=== PATIENT | male | born 1935 | race Caucasian/White ===

== ENCOUNTER 2021-08-08 20:44 | Inpatient (IN) | payer MEDICARE, BC ==
[~2021-08-08] VITALS: Ht 167.6 cm; Wt 89.8 kg
[2021-08-08] MEDS ORDERED: IV NS 0.9% 500 ML BAG IV ONE (21:00)
--- NOTE | 2021-08-08 21:10 | NUR ---
BLOOD WORK COLLECTED SENT TO LAB
--- NOTE | 2021-08-08 21:10 | NUR ---
RAD AT BEDSIDE
[2021-08-08 21:26] LABS: CARBON DIOXIDE 20 mmol/L (21-32); CHLORIDE 105 mmol/L (98-107); CREATININE 1.6 mg/dL (0.6-1.3); GLUCOSE 127 mg/dL (74-106); POTASSIUM 4.3 mmol/L (3.5-5.1); SODIUM SERUM 139 mmol/L (136-145); UREA NITROGEN, BLOOD 45 mg/dL (7-18)
[2021-08-08 21:31] LABS: BASOPHILS % (AUTO) 0.1 % (0.0-2.0); EOSINOPHILS % (AUTO) 2.7 % (0.0-6.0); HEMATOCRIT 36 % (39-51); HEMOGLOBIN 11.5 g/dL (13.5-17.5); LYMPHOCYTES # (AUTO) 1.1 K/uL (0.8-4.8); LYMPHOCYTES % (AUTO) 5.6 % (20.0-44.0); MEAN CORPUSCULAR HGB CONC 32 g/dl (31.0-36.0); MEAN CORPUSCULAR VOLUME 86 fL (80-96); MONOCYTES # (AUTO) 1.9 K/uL (0.1-1.30); NEUTROPHILS # (AUTO) 15.8 K/uL (1.8-8.9); NEUTROPHILS % (AUTO) 81.6 % (43.0-81.0); PLATELET COUNT (AUTO) 222 K/uL (150-450); RED BLOOD CELL COUNT(AUTO) 4.15 MIL/uL (4.5-6.0); WHITE BLOOD COUNT (AUTO) 19.4 K/uL (4.3-11.0)
[2021-08-08 21:42] LABS: ALANINE AMINOTRANSFERASE 95 U/L (12-78); ALBUMIN 2.6 g/dL (3.4-5.0); ALKALINE PHOSPHATASE 212 U/L (46-116); ASPARTATE AMINOTRANSFERASE 62 U/L (15-37); BILIRUBIN,DIRECT 0.4 mg/dL (0.0-0.2); BILIRUBIN,TOTAL 0.8 mg/dL (0.2-1.0); TOTAL PROTEIN, SERUM 7.7 g/dL (6.4-8.2)
--- NOTE | 2021-08-08 21:45 | NUR ---
COVID SWAB DONE
[2021-08-08] MEDS ORDERED: ASPIRIN 81 MG TAB.CHEW PO ONE (22:00)
--- NOTE | 2021-08-08 22:50 | NUR ---
[phone]
[2021-08-08] MEDS ORDERED: ENOXAPARIN SODIUM 80 MG/0.8 ML DISP.SYRIN SQ ONE ×2 (23:30→23:36)
[2021-08-09] MEDS ORDERED: Z GUARD REMEDY 4 OZ OINT TP PRN (01:00)
[2021-08-09] MEDS ORDERED: ACETAMINOPHEN 325 MG TABLET PO PRN (01:00)
[2021-08-09] MEDS ORDERED: IV 1/2NS 1000 ML 1,000 ML IV PRN (01:00)
[2021-08-09] MEDS ORDERED: MAGNESIUM HYDROXIDE 30 ML UDC PO PRN (01:00)
[2021-08-09] MEDS ORDERED: ONDANSETRON HCL/PF 4 MG/2 ML VIAL IVP PRN (01:00)
[2021-08-09 01:09] LABS: BILIRUBIN,URINE NEGATIVE (NEGATIVE); COLOR,URINE YELLOW (YELLOW); LEUKOCYTE ESTERASE ,URINE NEGATIVE (NEGATIVE); NITRITE, URINE NEGATIVE (NEGATIVE); PH,URINE 5.5 (5.0-8.0); PROTEIN,URINE TRACE mg/dl (NEGATIVE); UGLUCOSE NEGATIVE (NEGATIVE)
[2021-08-09] MEDS ORDERED: CEFTRIAXONE 1GM BAG (ER ONLY) 50 ML IV ONE (04:51)
[2021-08-09] MEDS: CEFTRIAXONE 1 G in IV D5W 50 ML IV SCH (04:52)
[2021-08-09 06:23] LABS: CHOLESTEROL 81 mg/dL (<200); HDL CHOLESTEROL 17 mg/dL (40-60); LDL 40 mg/dL (0-99); TRIGLYCERIDES 95 mg/dL (30-150)
[2021-08-09 06:31] LABS: BASOPHILS % (AUTO) 0.2 % (0.0-2.0); EOSINOPHILS % (AUTO) 3.6 % (0.0-6.0); HEMATOCRIT 32 % (39-51); HEMOGLOBIN 10.3 g/dL (13.5-17.5); LYMPHOCYTES % (AUTO) 6.4 % (20.0-44.0); MEAN CORPUSCULAR HGB CONC 33 g/dl (31.0-36.0); MEAN CORPUSCULAR VOLUME 86 fL (80-96); MONOCYTES # (AUTO) 1.5 K/uL (0.1-1.30); MONOCYTES % (AUTO) 9.5 % (2.0-12.0); NEUTROPHILS # (AUTO) 12.7 K/uL (1.8-8.9); NEUTROPHILS % (AUTO) 80.3 % (43.0-81.0); PLATELET COUNT (AUTO) 184 K/uL (150-450); RED BLOOD CELL COUNT(AUTO) 3.69 MIL/uL (4.5-6.0); WHITE BLOOD COUNT (AUTO) 15.9 K/uL (4.3-11.0)
--- NOTE | 2021-08-09 06:32 | NUR ---
CRITICAL LAB TROP [id number]
[2021-08-09 06:39] LABS: ALANINE AMINOTRANSFERASE 79 U/L (12-78); ALBUMIN 2.1 g/dL (3.4-5.0); ALKALINE PHOSPHATASE 187 U/L (46-116); ASPARTATE AMINOTRANSFERASE 54 U/L (15-37); BILIRUBIN,TOTAL 0.8 mg/dL (0.2-1.0); CALCIUM, SERUM 8.2 mg/dL (8.5-10.1); CARBON DIOXIDE 21 mmol/L (21-32); CHLORIDE 107 mmol/L (98-107); CREATININE 1.4 mg/dL (0.6-1.3); GLUCOSE 114 mg/dL (74-106); POTASSIUM 4.1 mmol/L (3.5-5.1); SODIUM SERUM 140 mmol/L (136-145); TOTAL PROTEIN, SERUM 6.6 g/dL (6.4-8.2); UREA NITROGEN, BLOOD 39 mg/dL (7-18)
--- NOTE | 2021-08-09 07:35 | NUR ---
BED 311-2
--- NOTE | 2021-08-09 07:47 | NUR ---
REPORT GIVEN TO YUE SHAIKH FOR YAMILEX
[2021-08-09] MEDS ORDERED: TAMS-12 PO (08:06)
[2021-08-09] MEDS ORDERED: ESCI5TAB PO (08:06)
[2021-08-09] MEDS ORDERED: BUDE3CAP8 PO (08:06)
[2021-08-09] MEDS ORDERED: FINA5TAB11 PO (08:06)
[2021-08-09] MEDS ORDERED: INFUSION (08:07)
[2021-08-09 08:10] VITALS: BP 133/67
[2021-08-09] MEDS: PANTOPRAZOLE 40 MG TABLET.DR PO SCH (08:47)
[2021-08-09] MEDS: ENOXAPARIN SODIUM 80 MG/0.8 ML DISP.SYRIN SQ SCH ×2 (08:48→21:08)
[2021-08-09] MEDS: ASPIRIN 81 MG TAB.CHEW PO SCH (08:48)
--- NOTE | 2021-08-09 09:30 | NUR ---
FURNACE MECHANIC HELPERMANAGER HVAC NOTES: ADMITTED 86Y/O MALE TO UNIT @0800 VIA REGULAR GURNEY ACCOMPANIED BY HEVER THEODORE FROM ER W/ DX OF NSTEMI. PATIENT ABLE TO MOVE FROM GURNEY TO BED WITH MINIMAL ASSISTANCE. A/O X4 AND ABLE TO VERBALIZED NEEDS. ORIENTED TO STAFFS AND AND UNIT. NO SOB OR CARDIAC DISTRESS NOTED, ON ROOM AIR AND TOLERATING WELL. BREATHING NORMAL AND UNLABORED AT THIS TIME. PATIENT WITH IV ACCESS ON LAC G#18 PATENT AND INTACT, IVF OF 1/2 NS @ 75ML/HR INFUSING WELL, NO S/S OF INFILTRATIONS AT SITE NOTED. ABDOMEN SOFT, NON-TENDER AND NOT DISTENDED, BOWEL SOUND PRESENT ON 4 QUADRANTS, LUNGS CLEAR UPON AUSCULTATION. SKIN IS WARM AND DRY, PHOTOS OF SKIN ISSUES TAKEN AND FILED ON HIS CHART. PT PLACED ON EXTERNAL EDITOR INDEX WITH CURRENT READING NSR, HR ON THE 70'S, NO C/O CARDIAC DISTRESS VOICED AT THIS TUME. SAFETY PRECAUTIONARY MEASURES IMPLEMENTED.: BED PLACED IN LOWEST POSITION AND LOCKED, SIDE RAILS UPX 2.TRAY TABLE AND CALL LIGHT IN EASY REACH FOR ASSISTANCE AND NEEDS. WILL CONTINUE TO MONITOR PATIENT ACCORDINGLY.
[2021-08-09 12:00] VITALS: BP 101/52
[2021-08-09 16:00] VITALS: BP 101/59
[2021-08-09] MEDS: TAMSULOSIN 0.4 MG CAP.SR.24H PO SCH (17:34)
[2021-08-09] MEDS: IV NS 0.9% 1,000 ML IV PRN (17:34)
[2021-08-09] MEDS: CARVEDILOL 3.125 MG TABLET PO SCH ×2 (17:35→21:03)
--- NOTE | 2021-08-09 18:07 | NUR ---
RN NOTES: CRITICAL LAB RESULTS: TROPONIN I HIGH SENS 1022 PATIENT FOR CARDIAC CATH TOMORROW @0900, NPO POST MIDNIGHT, WILL BE ENFORCED.
--- NOTE | 2021-08-09 18:29 | NUR ---
RN NOTES RECEIVED CALL FROM DR NICHOLSON WITH ORDER TO OBTAIN CONSENT FOR CARDIAC CATH TOMORROW AND NPO EXCEPT MEDS AFTER MIDNIGHT.
--- NOTE | 2021-08-09 19:02 | NUR ---
CALL OUT OPERATOR CLOSING NOTES: PATIENT IN BED WITH FAMILY IN BED SIDE, AWAKE AND ABLE TO VERBALIZED NEEDS. A/O X4. NO SOB OR CARDIAC DISTRESS NOTED, ON ROOM AIR AND TOLERTAING WELL. WITH IV OF 1/2 NS @75CC/HR AND INFUSING WELL ON LAC G#18. ON TELE MONITOR ATTACHED WITH CURRENT READING SR WITH BBB 63 @BPM. SAFETY MEASURES MAINTAINED: BED LOCKED AND IN LOWEST POSITION, SIDE RAILS UP X2. CALL LIGHT AND TRAY TABLE WITHIN EASY REACH. KEPT RESTED AND COMFORTABLE. CONSENT FOR CARDIAC CATH OBTAINED. PATIENT WILL BE ON NPO EXCEPT MEDS POST MIDNIGHT. WILL ENDORSED TO COOK ROOM SUPERVISOR NURSE FOR CONTINUITY OF CARE.
--- NOTE | 2021-08-09 19:10 | NUR ---
TELE/RN OPENING NOTE RECEIVED PATIENT RESTING IN BED. FAMILY AT BEDSIDE. PATIENT IS ALERT AND ORIENTED X 3. ABLE TO MAKE NEEDS KNOWN. DENIES PAIN AT THIS TIME. CONTINUES ON ROOM AIR WITH NO S/SX OF RESPIRATORY DISTRESS NOTED. IV ACCESS TO LEFT AC #18G INTACT AND PATENT. CONTINUES ON IVF NS @ 125ML/HR. CONTINUES ON IV ABX. PATIENT TO BE NPO FOR CARDIAC CATH IN AM. PATIENT AWARE AND AGREEABLE. CONSENTS ALL SIGNED IN CHART. CONTINUES ON TELE MONITOR WITH CURRENT READING SR. CALL LIGHT WITHIN REACH. ASPIRATION, FALL AND SAFETY PRECAUTIONS MAINTAINED. ALL NEEDS ATTENDED TO AT THIS TIME.
--- NOTE | 2021-08-09 19:20 | NUR ---
TELE/RN OPENING NOTE RECEIVED PATIENT RESTING IN BED. OBTUNDED AT BASELINE. NO S/SX OF PAIN NOTED. CONTINUES ON MECHANICAL VENT WITH PATIENT TOLERATING SETTINGS WELL. IV ACCESS TO LEFT UPPER ARM MIDLINE #18G INTACT AND PATENT. CONTINUES ON IVF NS @ 100ML/HR. CONTINUES ON TF GLUCERNA 1.2 @ 55ML/HR X 20HRS. NO RESIDUAL NOTED AT THIS TIME. CONTINUES ON LEMON CATHETER DRAINING CLEAR, YELLOW URINE TO GRAVITY. TELE MONITOR IN PLACE WITH CURRENT READING SR. CALL PLACED TO FAMILY REGARDING CONSENT FOR LEFT AKA. NO RETURN CALL YET. ASPIRATION, FALL AND SAFETY PRECAUTIONS MAINTAINED. ALL NEEDS ATTENDED TO AT THIS TIME. Addendum: 08/09/21 at 2224 by DARRION KIDD RN WRONG PATIENT.
[2021-08-09 20:00] VITALS: BP 135/61
--- NOTE | 2021-08-09 20:20 | NUR ---
TELE/RN NOTE LAB CALLED TO REPORT TROPONIN 832. DOWNTRENDING FROM PREVIOUS LAB DRAWS. MD AWARE. PATIENT TO HAVE CARDIAC CATH IN AM. CONSENTS SIGNED IN CHART.
[2021-08-09] MEDS: ZOLPIDEM TARTRATE 5 MG TABLET PO PRN (21:03)
[2021-08-09] MEDS: FINASTERIDE (5 MG) 5 MG TABLET PO SCH (21:03)
[2021-08-10] VITALS (15 sets, daily range): BP systolic 108–148; BP diastolic 43–103
--- NOTE | 2021-08-10 00:05 | NUR ---
TELE/RN NOTE LAB CALLED TO REPORT TROPONIN 885. DOWNTRENDING FROM PREVIOUS LAB DRAWS. MD AWARE. PATIENT TO HAVE CARDIAC CATH IN AM. CONSENTS SIGNED IN CHART.
[2021-08-10] MEDS: CEFTRIAXONE 1 G in IV D5W 50 ML IV SCH (04:50)
--- NOTE | 2021-08-10 06:10 | NUR ---
TELE/RN CLOSING NOTE PATIENT CURRENTLY SLEEPING IN BED. ALERT AND ORIENTED X 2-3. ABLE TO MAKE NEEDS KNOWN. DENIES PAIN AT THIS TIME. CONTINUES ON ROOM AIR WITH NO S/SX OF RESPIRATORY DISTRESS NOTED. IV ACCESS TO LEFT AC #18G INTACT AND PATENT. CONTINUES ON IVF NS @ 125ML/HR. CONTINUES ON IV ABX. PATIENT HAS BEEN NPO SINCE MIDNIGHT FOR CARDIAC CATH THIS AM. CONSENTS ALL SIGNED IN CHART. CONTINUES ON TELE MONITOR WITH CURRENT READING SR. CALL LIGHT WITHIN REACH. ASPIRATION, FALL AND SAFETY PRECAUTIONS MAINTAINED. WILL ENDORSE PLAN OF CARE TO ONCOMING SHIFT.
[2021-08-10 06:19] LABS: ALANINE AMINOTRANSFERASE 91 U/L (12-78); ALBUMIN 1.8 g/dL (3.4-5.0); ALKALINE PHOSPHATASE 231 U/L (46-116); ASPARTATE AMINOTRANSFERASE 60 U/L (15-37); BILIRUBIN,TOTAL 0.6 mg/dL (0.2-1.0); CALCIUM, SERUM 8.3 mg/dL (8.5-10.1); CARBON DIOXIDE 20 mmol/L (21-32); CHLORIDE 107 mmol/L (98-107); CREATININE 1.4 mg/dL (0.6-1.3); GLUCOSE 104 mg/dL (74-106); MAGNESIUM 1.8 mg/dL (1.8-2.4); POTASSIUM 4.2 mmol/L (3.5-5.1); SODIUM SERUM 138 mmol/L (136-145); TOTAL PROTEIN, SERUM 6.5 g/dL (6.4-8.2); UREA NITROGEN, BLOOD 31 mg/dL (7-18)
--- NOTE | 2021-08-10 06:30 | NUR ---
TELE/RN NOTE RECEIVED CALL FROM LAB WITH CRITICAL LAB VALUE TROPONIN 803. TRENDING DOWN FROM PREVIOUS TROPONIN LAB VALUES. PATIENT SCHEDULED FOR CARDIAC CATH THIS AM.
[2021-08-10 06:38] LABS: BASOPHILS # (AUTO) 0.1 K/uL (0.0-0.2); BASOPHILS % (AUTO) 0.4 % (0.0-2.0); HEMATOCRIT 33 % (39-51); HEMOGLOBIN 10.8 g/dL (13.5-17.5); LYMPHOCYTES # (AUTO) 1.2 K/uL (0.8-4.8); LYMPHOCYTES % (AUTO) 7.2 % (20.0-44.0); MEAN CORPUSCULAR HGB CONC 32 g/dl (31.0-36.0); MEAN CORPUSCULAR VOLUME 86 fL (80-96); MONOCYTES # (AUTO) 1.3 K/uL (0.1-1.30); MONOCYTES % (AUTO) 7.8 % (2.0-12.0); NEUTROPHILS # (AUTO) 13.3 K/uL (1.8-8.9); NEUTROPHILS % (AUTO) 79.6 % (43.0-81.0); PLATELET COUNT (AUTO) 173 K/uL (150-450); RED BLOOD CELL COUNT(AUTO) 3.86 MIL/uL (4.5-6.0); WHITE BLOOD COUNT (AUTO) 16.8 K/uL (4.3-11.0)
--- NOTE | 2021-08-10 07:20 | NUR ---
MANAGER LEGAL OPENING NOTES: RECEIEVED PARTIENT IN BED SLEEPING, EASY TO AROUSE WITH STIMULI. ALERT AND ORIENTED X 3, ABLE TO VERBALIZED NEEDS. NO SOB,BREATHING NORMAL AND UNLABORED, NO COMPLAIN OF ANY PAIN AT THIS TIME. IV ACCESS TO LEFT AC #18G INTACT AND PATENT. CONTINUES ON IVF NS @ 125ML/HR. PATIENT HAS BEEN NPO EXCEPT MEDS FOR CARDIAC CATH TODAY AM. ON TELE MONITOR WITH CURRENT READING SINUS JEFFREY WITH BBB AND PVCS 50BPM. SAFETY MEASURES MAINTAINED: BED LOCKED AND IN LOWEST POSITION. CALL LIGHT WITHIN EASY REACH FOR ASSISTANCE.
[2021-08-10] MEDS: PANTOPRAZOLE 40 MG TABLET.DR PO SCH (07:53)
[2021-08-10] MEDS: ASPIRIN 81 MG TAB.CHEW PO SCH (07:54)
[2021-08-10] MEDS: CARVEDILOL 3.125 MG TABLET PO SCH ×2 (07:56→21:50)
[2021-08-10] MEDS ORDERED: IV NS 0.9% 1,000 ML ONE (07:57)
[2021-08-10] MEDS ORDERED: IV SET PRIMARY PUMP SET 1 EA INFUS.SET MC ONE (07:57)
[2021-08-10] MEDS ORDERED: IODIXANOL 150 ML IV ONE (07:57)
[2021-08-10] MEDS ORDERED: NITROGLYCERIN IN 5 % DEXTROSE 250 ML IV ONE (07:58)
[2021-08-10] MEDS ORDERED: LIDOCAINE HCL/PF 1% 30 ML SDV ONE (07:58)
[2021-08-10] MEDS ORDERED: FENTANYL PF 100MCG/2ML AMPUL ONE (08:43)
[2021-08-10] MEDS ORDERED: MIDAZOLAM HCL 2 MG/2ML VIAL ONE (08:44)
--- NOTE | 2021-08-10 08:48 | NUR ---
WOUND CARE CONSULT: PT OFF UNIT AT THIS TIME. REVIEWED CHART, NURSING DOCUMENTATION AND PHOTO WHICH INDICATES DRY ABRASIONS/SCABS TO RT UPPER EXTREMITY, PRESENT ON ADMISSION. DISCUSSED SKIN PROTECTION WITH NURSING STAFF. MD IN AGREEMENT WITH PLAN OF CARE.
--- NOTE | 2021-08-10 08:50 | NUR ---
RN NOTES PT PICKED-UP FOR CARDIAC CATHETERIZATION
[2021-08-10] MEDS: ESCITALOPRAM OXALATE (10 MG) 10 MG TABLET PO SCH (09:00)
[2021-08-10] MEDS: TAMSULOSIN 0.4 MG CAP.SR.24H PO SCH (09:00)
[2021-08-10] MEDS: BUDESONIDE 3 MG CAP.SR.24H PO SCH (09:00)
[2021-08-10] MEDS: ENOXAPARIN SODIUM 80 MG/0.8 ML DISP.SYRIN SQ SCH ×2 (09:00→21:00)
[2021-08-10] MEDS ORDERED: IODIXANOL 320MG/ML 50 ML IV ONE (09:36)
[2021-08-10] MEDS ORDERED: HEPARIN SODIUM, PORCINE 1,000 UNIT/ML VIAL ONE ×2 (09:37→10:15)
[2021-08-10] MEDS ORDERED: HEPARIN SODIUM, PORCINE 5000 UNITS/1 ML VIAL ONE (09:37)
[2021-08-10] MEDS ORDERED: TICAGRELOR 90 MG TABLET PO ONE (09:52)
[2021-08-10] MEDS ORDERED: IODIXANOL 320MG/ML 100 ML IV ONE (09:53)
--- NOTE | 2021-08-10 10:55 | NUR ---
PATIENT TRANSFERRED FROM SWITCH FOREMAN-S/P PTCA/STENT TO LAD AND LEFT CIRCUMFLEX. RIGHT RADIAL ACCESS WITH TR BAND NOTED WITH LARGE SWELLING. SWITCH FOREMAN RN REUBEN AWARE.
--- NOTE | 2021-08-10 11:05 | NUR ---
RN NOTES PT WENT TO ICU RM [id number] FROM CARDIAC CATH, CALLED AND REPORT GIVEN TO SEGUNDO. PT'S BELONGINGS SENT TO ICU BY MARLYN LEONG.
--- NOTE | 2021-08-10 11:15 | NUR ---
RIGHGT RADIAL NOTED WITH SOME BLEEDING AT SITE. LINGO CLEANER NOTIFIED. ASSESSED BY HAWA ALEXIS. CONTINUE TO MONITOR CLOSELY. RIGHT RADIAL PULSES PRESENT.
--- NOTE | 2021-08-10 12:00 | NUR ---
TRANSFER/ADMIT NOTES PT CAME FROM HOME WITH WEAKNESS. S/P FALL 10 DAYS AGO. DIAGNOSIS IS NSTEMI, HX OF HTN, BPH, ANEMIA, LOWER BACK SX (2020), ANXIETY, AND DEPRESSION. PT HAS NKA, FULL CODE, AND COVID NEGATIVE. PT IS ON RA SATING AT 96-98%. TELE MONITOR READS SB WITH BBB/PVC'S. HR 47. PT IS ON CARDIAC DIET, IV ACCESS NOTED AT L AC 18G WITH NS RUNNING @ 125 MLS/HR. ALL SAFETY MEASURES IN PLACE. WILL CONT TO MONITOR THROUGHOUT SHIFT.
[2021-08-10] MEDS: IV NS 0.9% 1,000 ML IV PRN ×2 (12:38→21:47)
--- NOTE | 2021-08-10 14:05 | NUR ---
BUSINESS INITIATIVES MANAGER NOTIFIED RE: RIGHT RADIAL BLEEDINGT/BRUISING.
--- NOTE | 2021-08-10 15:20 | NUR ---
RN NOTES PT SEEN BY DR NICHOLSON AT BEDSIDE. TR BAND REMOVED BY MD. NO COMPLICATIONS NOTED. PT DENIES TINGLING AND NUMBNESS IN FINGERS. GOOD RADIAL PULSES. WILL CONT. TO MONITOR FOR SWELLING AND BLEEDING.
[2021-08-10] MEDS: ZOLPIDEM TARTRATE 5 MG TABLET PO PRN (19:38)
[2021-08-10] MEDS: FINASTERIDE (5 MG) 5 MG TABLET PO SCH (21:50)
[2021-08-11] VITALS (9 sets, daily range): BP systolic 100–141; BP diastolic 54–77
--- NOTE | 2021-08-11 00:56 | NUR ---
RN NOTES REPORT RECEIVED FROM ICU NURSE ANATOLY.
--- NOTE | 2021-08-11 03:35 | NUR ---
RN NOTES RECEIVED BEDSIDE REPORT FROM MARIJA SHAIKH FROM ICU. PATIENT IS A/O X 2-3 ABLE TO MAKES NEED KNOWN. ON ROOM AIR SATING 96. NO SOB NO DISTRESS NOTED AT THIS TIME. WITH IV ACCESS AT L AC #18 PATENT FLUSHES WELL CONNECTED TO CONTINUOS IVF @ NS@ 125CC/HR. WITH LEMON CATHETER CONNECTED TO URINE BAG DRAINING YELLOWISH URINE OUTPUT. VITAL SIGN TAKEN AND RECORDED AFEBRILE. S/P PTCA AND STENTING AT LAD AND DISTAL LEFT CIRCUMFERENCE. ALL SAFETY MEASURES IN PLACE AT ALL TIMES. HOB ELEVATED. CALL LIGHT WITHIN REACH BED ON LOWEST POSITION AND LOCKED. WILL CLOSELY MONITOR THE PATIENT FOR ANY CHANGES.
[2021-08-11] MEDS: CEFTRIAXONE 1 G in IV D5W 50 ML IV SCH (05:21)
[2021-08-11] MEDS: IV NS 0.9% 1,000 ML IV PRN (05:26)
--- NOTE | 2021-08-11 06:51 | NUR ---
RN NOTES PATIENT REMAINS STABLE THIS SHIFT NO SIGNIFICANT CHANGES NO SOB NO DISTRESS NO BLEEDING NOTED. ALL DUE MEDS GIVEN ORDERED. STILL WITH IV ACCESS AT L AC ON CONTINUOS IVF NS @ 125CC/HR. WITH LEMON CONNECTED TO URINE BAG DRAINING YELLOWISH URINE. ALL SAFETY MEASURES IN PLACE AT ALL TIMES. HOB ELEVATED. CALL LIGHT WITHIN REACH. BED ON LOWEST POSITION AND LOCKED, WILL ENDORSED TO MORNING SHIFT FOR YAMILEX
[2021-08-11 06:57] LABS: BASOPHILS # (AUTO) 0.1 K/uL (0.0-0.2); BASOPHILS % (AUTO) 0.4 % (0.0-2.0); EOSINOPHILS % (AUTO) 3.4 % (0.0-6.0); HEMATOCRIT 33 % (39-51); HEMOGLOBIN 10.6 g/dL (13.5-17.5); LYMPHOCYTES % (AUTO) 4.9 % (20.0-44.0); MEAN CORPUSCULAR HGB CONC 33 g/dl (31.0-36.0); MEAN CORPUSCULAR VOLUME 85 fL (80-96); MONOCYTES # (AUTO) 1.7 K/uL (0.1-1.30); MONOCYTES % (AUTO) 8.2 % (2.0-12.0); NEUTROPHILS # (AUTO) 17.1 K/uL (1.8-8.9); NEUTROPHILS % (AUTO) 83.1 % (43.0-81.0); PLATELET COUNT (AUTO) 152 K/uL (150-450); RED BLOOD CELL COUNT(AUTO) 3.87 MIL/uL (4.5-6.0); WHITE BLOOD COUNT (AUTO) 20.6 K/uL (4.3-11.0)
[2021-08-11 07:06] LABS: CALCIUM, SERUM 8.2 mg/dL (8.5-10.1); CARBON DIOXIDE 19 mmol/L (21-32); CHLORIDE 107 mmol/L (98-107); CREATININE 1.3 mg/dL (0.6-1.3); GLUCOSE 114 mg/dL (74-106); POTASSIUM 3.7 mmol/L (3.5-5.1); SODIUM SERUM 138 mmol/L (136-145); UREA NITROGEN, BLOOD 24 mg/dL (7-18)
--- NOTE | 2021-08-11 07:30 | NUR ---
RN OPENING NOTE PATIENT IS IN BED AWAKE, ALERT, ORIENTED X 3. ON ROOM AIR WITH O2 SATURATION AT 98%, NOT IN ANY FORM OF DISTRESS, DENIES PAIN. SINUS RHYTHM ON ELECTRICAL HELPER. WITH LEFT ANTECUBITAL LINE INFUSING WITH NS AT 125 ML/HR. WITH LEMON CATHETER DRAINING TO CLEAR YELLOW URINE. BED IS LOCKED IN LOWEST POSITION, 3 SIDE RAILS UP, CALL LIGHT WITHIN REACH. WILL CONTINUE TO MONITOR THROUGHOUT SHIFT.
[2021-08-11] MEDS: TICAGRELOR 90 MG TABLET PO SCH ×2 (08:41→18:03)
[2021-08-11] MEDS: BUDESONIDE 3 MG CAP.SR.24H PO SCH (08:41)
[2021-08-11] MEDS: ASPIRIN 81 MG TAB.CHEW PO SCH (08:42)
[2021-08-11] MEDS: TAMSULOSIN 0.4 MG CAP.SR.24H PO SCH (08:42)
[2021-08-11] MEDS: PANTOPRAZOLE 40 MG TABLET.DR PO SCH (08:42)
[2021-08-11] MEDS: ESCITALOPRAM OXALATE (10 MG) 10 MG TABLET PO SCH (08:42)
[2021-08-11] MEDS: CARVEDILOL 3.125 MG TABLET PO SCH ×2 (08:45→21:28)
[2021-08-11] MEDS ORDERED: CEFEPIME 1 GM in IV D5W 50 ML IV SCH (11:00)
--- NOTE | 2021-08-11 19:00 | NUR ---
RN CLOSING NOTE PATIENT IS IN BED AWAKE, ALERT, ORIENTED X 3. ON ROOM AIR WITH O2 SATURATION AT 98%, NOT IN ANY FORM OF DISTRESS, DENIES PAIN. SINUS RHYTHM ON DRUG ABUSE COUNSELOR. WITH LEFT ANTECUBITAL LINE INFUSING WITH NS AT 125 ML/HR. WITH LEMON CATHETER DRAINING TO CLEAR YELLOW URINE. PATIENT REMAINED STABLE THROUGHOUT SHIFT. BED IS LOCKED IN LOWEST POSITION, 3 SIDE RAILS UP, CALL LIGHT WITHIN REACH. WILL ENDORSE TO RESTAURANT LEAD NURSE.
--- NOTE | 2021-08-11 19:10 | NUR ---
RN NOTES RECEIVED RE[PORT FROM MORNING RN. PATIENT IN BED A/O X3 ABLE TO MAKE NEEDS KNOWN FAMILY AT BEDSIDE. WITH IV ACCESS AT L AC # 20 PATENT FLUSHES WELL. WITH LEMON CATHETER CONNECTED TO URINE BAG DRAINING YELLOWISH URINE. ON ROOM AIR SATING 98% NO SOB NO DISTRESS NOTED AT THIS TIME. NO BLEEDING AT L PULSE. VITAL SIGNS TAKEN AND RECORDED AFEBRILE. ALL SAFETY MEASURES IN PLACE AT ALL TIMES. HOB ELEVATED. CALL LIGHT WITHIN REACH. BED ON LOWEST POSITION AND LOCKED. WILL CLOSELY MONITOR THE PATIENT
[2021-08-11] MEDS: FINASTERIDE (5 MG) 5 MG TABLET PO SCH (21:26)
[2021-08-11] MEDS: ZOLPIDEM TARTRATE 5 MG TABLET PO PRN (21:27)
[2021-08-12] VITALS: BP 115/48
[2021-08-12 04:00] VITALS: BP 129/52
--- NOTE | 2021-08-12 06:40 | NUR ---
RN NOTES PATIENT REMAINS STABLE THIS SHIFT NO SIGNIFICANT CHANGES NO SOB NO DISTRESS NO BLEEDING NOTED. ALL DUE MEDS GIVEN ORDERED. STILL WITH IV ACCESS AT L AC PATENT. WITH LEMON CONNECTED TO URINE BAG DRAINING YELLOWISH URINE. ALL SAFETY MEASURES IN PLACE AT ALL TIMES. HOB ELEVATED. CALL LIGHT WITHIN REACH. BED ON LOWEST POSITION AND LOCKED, WILL ENDORSED TO MORNING SHIFT FOR YAMILEX
[2021-08-12 06:55] LABS: CALCIUM, SERUM 8.1 mg/dL (8.5-10.1); CARBON DIOXIDE 18 mmol/L (21-32); CHLORIDE 107 mmol/L (98-107); CREATININE 1.4 mg/dL (0.6-1.3); GLUCOSE 113 mg/dL (74-106); POTASSIUM 3.7 mmol/L (3.5-5.1); SODIUM SERUM 138 mmol/L (136-145); UREA NITROGEN, BLOOD 27 mg/dL (7-18)
[2021-08-12 07:05] LABS: BASOPHILS % (AUTO) 0.2 % (0.0-2.0); HEMATOCRIT 33 % (39-51); HEMOGLOBIN 10.8 g/dL (13.5-17.5); LYMPHOCYTES % (AUTO) 4.2 % (20.0-44.0); MEAN CORPUSCULAR HGB CONC 33 g/dl (31.0-36.0); MEAN CORPUSCULAR VOLUME 84 fL (80-96); MONOCYTES # (AUTO) 1.5 K/uL (0.1-1.30); MONOCYTES % (AUTO) 6.3 % (2.0-12.0); NEUTROPHILS # (AUTO) 21.2 K/uL (1.8-8.9); NEUTROPHILS % (AUTO) 87.3 % (43.0-81.0); PLATELET COUNT (AUTO) 150 K/uL (150-450); RED BLOOD CELL COUNT(AUTO) 3.94 MIL/uL (4.5-6.0); WHITE BLOOD COUNT (AUTO) 24.2 K/uL (4.3-11.0)
[2021-08-12 08:00] VITALS: BP 148/91
--- NOTE | 2021-08-12 08:00 | NUR ---
RNTELE NOTES PATIENT IN BED NOTED SLIGHT SOB DR BOOKER NOTIFIED , AWARE THAT WBC 22 ON ATB , PLCED ON IVF WILL F\U NO SOB NO DISTRESS NO BLEEDING NOTED. ALL DUE MEDS GIVEN ORDERED. NEW HL ON RT FA MARIANO WITH GOOD BLOOD RETURN, . WITH LEMON CONNECTED TO URINE BAG DRAINING YELLOWISH URINE. ALL SAFETY MEASURES IN PLACE AT ALL TIMES. HOB ELEVATED. CALL LIGHT WITHIN REACH. BED ON LOWEST POSITION AND LOCKED, ON TELE MONITOR SR HR 67
--- NOTE | 2021-08-12 08:30 | NUR ---
DOCTOR OF DENTAL MEDICINE NOTE DR FRANCOIS AT BEDSIDE PATIENT CONDITION UPDATED
[2021-08-12] MEDS: BUDESONIDE 3 MG CAP.SR.24H PO SCH (09:35)
[2021-08-12] MEDS: CARVEDILOL 3.125 MG TABLET PO SCH ×2 (09:35→21:00)
[2021-08-12] MEDS: ASPIRIN 81 MG TAB.CHEW PO SCH (09:35)
[2021-08-12] MEDS: TAMSULOSIN 0.4 MG CAP.SR.24H PO SCH (09:35)
[2021-08-12] MEDS: TICAGRELOR 90 MG TABLET PO SCH ×2 (09:35→16:32)
[2021-08-12] MEDS: ESCITALOPRAM OXALATE (10 MG) 10 MG TABLET PO SCH (09:36)
[2021-08-12] MEDS: PANTOPRAZOLE 40 MG TABLET.DR PO SCH (09:37)
[2021-08-12] MEDS: IV NS 0.9% 1,000 ML IV SCH ×2 (09:49→21:00)
--- NOTE | 2021-08-12 10:00 | NUR ---
OLIVE KNOCKER NOTE DR BOOKER AT BEDSIDE UPDATED PATIENT CONDITION AWARE THAT WBC 22 WITH ORDER TO CONT ATB AND START IVF ALSO ORDERED PT EVAL
--- NOTE | 2021-08-12 10:56 | NUR ---
NURSING TEACHER NOTE PT AT BEDSIDE PATIENT ABLE TO AMBULATE FEW STEPS WITH WALKER WITH MOD ASSISTANCE WILL MONITOR
[2021-08-12] MEDS: CEFEPIME 2 GM in IV D5W 100 ML IV SCH (11:55)
[2021-08-12 12:00] VITALS: BP 104/49
--- NOTE | 2021-08-12 13:30 | NUR ---
KATE SHAIKH NOTE PER AMEE SHAIKH NP OK TO DO CT ABDOMEN NO CONTRAST Addendum: 08/12/21 at 1431 by MARYJO RENDON RN CT ABDOMEN DONE KERA Gallagher
[2021-08-12 16:00] VITALS: BP 132/66
--- NOTE | 2021-08-12 18:48 | NUR ---
CASH MANAGEMENT OFFICER NOTE ROUNDS MADE , ALL NEEDS ATTENDED ON RA NO SOB NOTED AT THIS TIME, ON TELE MONITOR SR HR 63 WITH BBB, , FAMILY AT AT BEDSIDE, WITH LEMON CATH TO GRAVITY , ON IVF ORDERED ,RT UPPER ARM MID LINE IN PLACED AND FLUSHED WELL , BED IN LOWEST AND LOCKED POSITION, WILL MONITOR CLOSELY
[2021-08-12 20:00] VITALS: BP 128/62
[2021-08-12] MEDS: FINASTERIDE (5 MG) 5 MG TABLET PO SCH (21:00)
[2021-08-12] MEDS: MORPHINE SULFATE INJ 2 MG/ML DISP.SYRIN IV PRN (23:34)
[2021-08-13] VITALS: BP 140/68
[2021-08-13 04:00] VITALS: BP 131/55
[2021-08-13] MEDS: FINASTERIDE (5 MG) 5 MG TABLET PO SCH (05:15)
[2021-08-13 06:39] LABS: BASOPHILS # (AUTO) 0.1 K/uL (0.0-0.2); BASOPHILS % (AUTO) 0.2 % (0.0-2.0); EOSINOPHILS % (AUTO) 3.3 % (0.0-6.0); HEMATOCRIT 34 % (39-51); HEMOGLOBIN 11.1 g/dL (13.5-17.5); LYMPHOCYTES % (AUTO) 4.5 % (20.0-44.0); MEAN CORPUSCULAR HGB CONC 33 g/dl (31.0-36.0); MEAN CORPUSCULAR VOLUME 85 fL (80-96); MONOCYTES # (AUTO) 1.6 K/uL (0.1-1.30); MONOCYTES % (AUTO) 6.9 % (2.0-12.0); NEUTROPHILS # (AUTO) 19.7 K/uL (1.8-8.9); NEUTROPHILS % (AUTO) 85.1 % (43.0-81.0); PLATELET COUNT (AUTO) 125 K/uL (150-450); RED BLOOD CELL COUNT(AUTO) 3.98 MIL/uL (4.5-6.0); WHITE BLOOD COUNT (AUTO) 23.2 K/uL (4.3-11.0)
--- NOTE | 2021-08-13 06:56 | NUR ---
SKATE BOARDER NOTE PATIENT ASLEEP AT THIS TIME, AROUSES TO VERBAL STIMULI, ON ROOM AIR WITH OPTIMAL O2 SAT LEVEL, V-PACING IN TELE MONITOR, HR 60S, WITH LEMON CATH TO GRAVITY , ON IVF ORDERED ,RT UPPER ARM MID LINE IN PLACED AND FLUSHED WELL , IVF ORDERED INFUSING AND PATIENT TOLERATED WELL, NO SIGNIFICANT CHANGE IN CONDITION, MORPHINE ADMINISTERED X ONE FOR PAIN LAST NIGHT, BED IN LOWEST AND LOCKED POSITION, WILL ENDORSE CONTINUITY OF CARE TO ONCOMING NURSE.
[2021-08-13 07:08] LABS: CALCIUM, SERUM 8.1 mg/dL (8.5-10.1); CREATININE 1.3 mg/dL (0.6-1.3); POTASSIUM 3.7 mmol/L (3.5-5.1)
--- NOTE | 2021-08-13 07:30 | NUR ---
RN OPENING NOTE PATIENT IS IN BED ON SEMI-HERNANDEZ'S POSITION, AWAKE ALERT ORIENTED X 3. ON ROOM AIR WITH OXYGEN SATURATION AT 98%. SINUS RHYTHM ON MESSAGE BROKER DEVELOPER. DENIES PAIN OR NAUSEA. WITH LEFT ARM ANTECUBITAL IV SALINE LOCK, INTACT AND PATENT. WITH RIGHT FOREARM MID LINE INFUSING WITH NS AT 75 CC/HR. BED IS LOCKED IN LOWEST POSITION, 3 SIDE RAILS UP, CALL LIGHT WITHIN REACH. WILL CONTINUE TO MONITOR THROUGHOUT SHIFT.
[2021-08-13 08:00] VITALS: BP 141/52
[2021-08-13] MEDS: TAMSULOSIN 0.4 MG CAP.SR.24H PO SCH (09:18)
[2021-08-13] MEDS: ASPIRIN 81 MG TAB.CHEW PO SCH (09:19)
[2021-08-13] MEDS: CARVEDILOL 3.125 MG TABLET PO SCH ×2 (09:19→20:41)
[2021-08-13] MEDS: BUDESONIDE 3 MG CAP.SR.24H PO SCH (09:19)
[2021-08-13] MEDS: TICAGRELOR 90 MG TABLET PO SCH ×2 (09:20→18:28)
[2021-08-13] MEDS: ESCITALOPRAM OXALATE (10 MG) 10 MG TABLET PO SCH (09:20)
[2021-08-13] MEDS: CEFEPIME 2 GM in IV D5W 100 ML IV SCH (09:21)
[2021-08-13] MEDS: PANTOPRAZOLE 40 MG TABLET.DR PO SCH (09:23)
[2021-08-13] MEDS: IV NS 0.9% 1,000 ML IV SCH ×2 (11:10→19:57)
[2021-08-13 12:00] VITALS: BP 122/59
[2021-08-13] MEDS: MORPHINE SULFATE INJ 2 MG/ML DISP.SYRIN IV PRN ×2 (13:54→23:34)
[2021-08-13 16:00] VITALS: BP 116/63
[2021-08-13] MEDS ORDERED: IOHEXOL-300 100 ML VIAL IV ONE (17:07)
[2021-08-13] MEDS ORDERED: IV NS 0.9% 250 ML IV ONE (17:07)
--- NOTE | 2021-08-13 19:02 | NUR ---
RN CLOSING NOTE PATIENT IS IN BED ON SEMI-HERNANDEZ'S POSITION AND REMAINS STABLE THROUGHOUT THE SHIFT. ON ROOM AIR WITH OXYGEN SATURATION AT 98%. SINUS RHYTHM ON RESPITE PROVIDER. NOT IN ANY FORM OF DISTRESS. BED IS LOCKED IN LOWEST POSITION, 3 SIDE RAILS UP, AND CALL LIGHT WITHIN REACH. WILL ENDORSE TO CARDIOLOGY SPECIALIST NURSE.
[2021-08-13 19:44] LABS: ALBUMIN 1.7 g/dL (3.4-5.0); BILIRUBIN,DIRECT 0.5 mg/dL (0.0-0.2); TOTAL PROTEIN, SERUM 6.1 g/dL (6.4-8.2)
[2021-08-13 20:00] VITALS: BP 124/63
[2021-08-14] VITALS (7 sets, daily range): BP systolic 115–137; BP diastolic 50–93
[2021-08-14] MEDS: ZOLPIDEM TARTRATE 5 MG TABLET PO PRN (00:39)
--- NOTE | 2021-08-14 06:30 | NUR ---
RN CLOSING NOTE PATIENT IS IN BED ASLEEP AT THIS TIME, AROUSES TO VERBAL STIMULI, ON ROOM AIR WITH OPTIMAL OO2 SAT LEVEL, NSR HM ON FRAUD EXAMINER, NS AT 75 CC/HR INFUSING WELL AND PATIENT TOLERATED WELL, MORPHINE GIVEN ONCE LAST NIGHT FOR PAIN, OTHERWISE NO SIGNIFICANT CHANGE IN CONDITION DURING THE NIGHT, F/C IN PLACE DRAINING KANU COLOR URINE BY GRAVITY, BED LOCKED AND LOWEST POSITION, 3 SIDE RAILS UP, CALL LIGHT WITHIN REACH, WILL ENDORSE CONTINUITY OF CARE TO ONCOMING NURSE.
[2021-08-14] MEDS: MORPHINE SULFATE INJ 2 MG/ML DISP.SYRIN IV PRN ×2 (06:53→21:26)
[2021-08-14 07:12] LABS: CREATININE 1.2 mg/dL (0.6-1.3); POTASSIUM 3.9 mmol/L (3.5-5.1)
[2021-08-14 07:42] LABS: BASOPHILS % (AUTO) 0.1 % (0.0-2.0); EOSINOPHILS % (AUTO) 3.5 % (0.0-6.0); HEMATOCRIT 34 % (39-51); HEMOGLOBIN 11.2 g/dL (13.5-17.5); LYMPHOCYTES # (AUTO) 0.8 K/uL (0.8-4.8); LYMPHOCYTES % (AUTO) 3.1 % (20.0-44.0); MEAN CORPUSCULAR HGB CONC 33 g/dl (31.0-36.0); MEAN CORPUSCULAR VOLUME 85 fL (80-96); MONOCYTES # (AUTO) 1.9 K/uL (0.1-1.30); MONOCYTES % (AUTO) 7.4 % (2.0-12.0); NEUTROPHILS # (AUTO) 22.3 K/uL (1.8-8.9); NEUTROPHILS % (AUTO) 85.9 % (43.0-81.0); PLATELET COUNT (AUTO) 109 K/uL (150-450); RED BLOOD CELL COUNT(AUTO) 4.01 MIL/uL (4.5-6.0)
[2021-08-14] MEDS ORDERED: CLOPIDOGREL BISULFATE 300 MG TABLET PO ONE (08:30)
[2021-08-14] MEDS: ESCITALOPRAM OXALATE (10 MG) 10 MG TABLET PO SCH (08:48)
[2021-08-14] MEDS: TAMSULOSIN 0.4 MG CAP.SR.24H PO SCH (08:48)
[2021-08-14] MEDS: BUDESONIDE 3 MG CAP.SR.24H PO SCH (08:48)
[2021-08-14] MEDS: CARVEDILOL 3.125 MG TABLET PO SCH ×2 (08:49→21:23)
[2021-08-14] MEDS: ASPIRIN 81 MG TAB.CHEW PO SCH (08:49)
[2021-08-14] MEDS: PANTOPRAZOLE 40 MG TABLET.DR PO SCH (08:51)
[2021-08-14] MEDS: IV NS 0.9% 1,000 ML IV SCH (09:39)
[2021-08-14] MEDS ORDERED: METRONIDAZOLE 500 MG TABLET PO SCH (13:00)
--- NOTE | 2021-08-14 18:52 | NUR ---
RN NOTE PT VERBALIZED HE HAD BAD REACTION TO PO FLAGYL. HE FELT VERY TIRED AND DRAINED PER PT. ID CONSULT MADE AWARE. T.O TO CHANGE ABX TO IV ZOSYN 3.375 Q 8HRS.
--- NOTE | 2021-08-14 19:54 | NUR ---
RN NOTE PATIENT RESTING IN BED. RESPONSIVE VERBALLY TO STIMULI. CONTINUES ON ROOM AIR WITH O2 SAT LEVEL ABOVE 95, NSR ON SUSPENDER CUTTER. WITH IVF NS AT 75 CC/HR INFUSING WELL. NO SIGNIFICANT CHANGE IN CONDITION. F/C IN PLACE DRAINING WELL WITH KANU COLOR URINE.SAFETY MEASURES FOLLOWED. DUE MEDS TAKEN. NEEDS ATTENDED. WILL ENDORSE TO NEXT RN FOR CONTINUITY OF CARE.
--- NOTE | 2021-08-14 19:56 | NUR ---
RN OPENING NOTE PATIENT IS IN BED ASLEEP AT THIS TIME, AROUSES TO VERBAL STIMULI, ON ROOM AIR WITH OPTIMAL OO2 SAT LEVEL, NSR HM ON VICE PRESIDENT INVESTOR RELATIONS, NS AT 75 CC/HR INFUSING WELL AND PATIENT TOLERATED WELL, F/C IN PLACE DRAINING KANU COLOR URINE BY GRAVITY, PT FAMILY AT BEDSIDE. BED LOCKED AND LOWEST POSITION, 3 SIDE RAILS UP, CALL LIGHT WITHIN REACH WILL CONTINUE TO MONITOR.
[2021-08-14] MEDS: PIPERACILLIN /TAZOBACTAM 3.375 G in IV D5W 100 ML IV SCH (20:56)
[2021-08-14] MEDS ORDERED: PIPERACILLIN /TAZOBACTAM 3.375 G in IV D5W 50 ML IV SCH (21:00)
--- NOTE | 2021-08-14 21:15 | NUR ---
rn notes prn morphine given for pain tolerated well. will continue to monitor all needs met at this time.
[2021-08-14] MEDS: FINASTERIDE (5 MG) 5 MG TABLET PO SCH (21:22)
[2021-08-15] VITALS: BP 137/93
[2021-08-15] MEDS: IV NS 0.9% 1,000 ML IV SCH ×2 (03:16→16:55)
[2021-08-15] MEDS: MORPHINE SULFATE INJ 2 MG/ML DISP.SYRIN IV PRN ×2 (03:16→08:30)
--- NOTE | 2021-08-15 03:16 | NUR ---
rn notes prn morphine given tolerated well all needs met at this time will continue to monitor.
[2021-08-15 04:00] VITALS: BP 103/50
[2021-08-15] MEDS: PIPERACILLIN /TAZOBACTAM 3.375 G in IV D5W 100 ML IV SCH (05:03)
--- NOTE | 2021-08-15 07:25 | NUR ---
RN OPENING NOTES RECEIVED PATIENT IN BED, AWAKE, A/O X3, VERBALLY RESPONSIVE. NO SIGNS OF ACUTE DISTRESS NOTED. STABLE ON ROOM AIR. DENIES ANY PAIN AT THIS TIME. NOTED WITH IV ACCESS ON RIGHT UPPER ARM MIDLINE #18G, INTACT AND PATENT, WITH NS @75ML/HR RUNNING. SAFETY MEASURE IN PLACE,BED IN LOWEST AND LOCKED POSITION, SIDE RAILS UP X2, CALL LIGHT PLACED WITHIN EASY REACH. WILL CONTINUE TO MONITOR PATIENT.
[2021-08-15 07:46] LABS: BASOPHILS % (AUTO) 0.1 % (0.0-2.0); EOSINOPHILS % (AUTO) 3.7 % (0.0-6.0); HEMATOCRIT 36 % (39-51); HEMOGLOBIN 11.7 g/dL (13.5-17.5); LYMPHOCYTES # (AUTO) 0.7 K/uL (0.8-4.8); LYMPHOCYTES % (AUTO) 2.8 % (20.0-44.0); MEAN CORPUSCULAR HGB CONC 33 g/dl (31.0-36.0); MEAN CORPUSCULAR VOLUME 84 fL (80-96); MONOCYTES # (AUTO) 1.9 K/uL (0.1-1.30); MONOCYTES % (AUTO) 7.1 % (2.0-12.0); NEUTROPHILS # (AUTO) 23.1 K/uL (1.8-8.9); NEUTROPHILS % (AUTO) 86.3 % (43.0-81.0); PLATELET COUNT (AUTO) 105 K/uL (150-450); RED BLOOD CELL COUNT(AUTO) 4.22 MIL/uL (4.5-6.0); WHITE BLOOD COUNT (AUTO) 26.8 K/uL (4.3-11.0)
[2021-08-15 07:58] LABS: IRON, SERUM 23 ug/dl (50-175); TOTAL IRON BINDING CAPACITY 120 ug/dl (250-450)
[2021-08-15 08:00] VITALS: BP 139/55
[2021-08-15] MEDS: TAMSULOSIN 0.4 MG CAP.SR.24H PO SCH (08:28)
[2021-08-15] MEDS: PANTOPRAZOLE 40 MG TABLET.DR PO SCH (08:28)
[2021-08-15] MEDS: ESCITALOPRAM OXALATE (10 MG) 10 MG TABLET PO SCH (08:29)
[2021-08-15] MEDS: CARVEDILOL 3.125 MG TABLET PO SCH ×2 (08:29→21:25)
[2021-08-15] MEDS: ASPIRIN 81 MG TAB.CHEW PO SCH (08:29)
[2021-08-15] MEDS: CLOPIDOGREL BISULFATE 75 MG TABLET PO SCH (08:29)
[2021-08-15 08:32] LABS: THYROID STIMULATING HORMONE 2.989 uIU/mL (0.358-3.74)
[2021-08-15] MEDS: BUDESONIDE 3 MG CAP.SR.24H PO SCH (08:34)
[2021-08-15 08:37] LABS: FERRITIN 3220 ng/mL (8-388)
[2021-08-15 08:44] LABS: C-REACTIVE PROTEIN 27.7 mg/dL (0.0-0.9)
[2021-08-15 09:05] LABS: ALANINE AMINOTRANSFERASE 104 U/L (12-78); ALBUMIN 1.5 g/dL (3.4-5.0); ALKALINE PHOSPHATASE 239 U/L (46-116); ASPARTATE AMINOTRANSFERASE 76 U/L (15-37); BILIRUBIN,TOTAL 1.7 mg/dL (0.2-1.0); CARBON DIOXIDE 18 mmol/L (21-32); CHLORIDE 106 mmol/L (98-107); CREATININE 1.7 mg/dL (0.6-1.3); GLUCOSE 104 mg/dL (74-106); POTASSIUM 4.1 mmol/L (3.5-5.1); SODIUM SERUM 136 mmol/L (136-145); TOTAL PROTEIN, SERUM 5.9 g/dL (6.4-8.2); UREA NITROGEN, BLOOD 35 mg/dL (7-18)
[2021-08-15 09:13] LABS: CALCIUM, SERUM 7.8 mg/dL (8.5-10.1)
[2021-08-15 11:07] LABS: AFP, TUMOR MARKER 1.1 ng/mL (0.0-6.4)
[2021-08-15 12:00] VITALS: BP 107/46
[2021-08-15] MEDS: MEROPENEM 500 MG in IV NS 0.9% 50 ML IV SCH ×2 (13:18→21:24)
[2021-08-15 16:00] VITALS: BP 102/52
--- NOTE | 2021-08-15 18:49 | NUR ---
RN CLOSING NOTES PATIENT RESTING COMFORTABLY IN BED. NO SIGNS OF ACUTE DISTRESS NOTED. REMAINS STABLE ON ROOM AIR. NO SOB NOTED, BREATHING EVEN AND UNLABORED. ON TELE MONITOR SHOWING SINUS RHYTHM, HR @60. IV ACCESS ON RIGHT UPPER ARM MIDLINE #18G, INTACT AND PATENT, WITH NS @75ML/HR RUNNING. ALL DUE MEDS GIVEN, TOLERATED WELL. FAMILY AT BEDSIDE. SAFETY MEASURES IN PLACE, BED IN LOWEST AND LOCKED POSITION, SIDE RAILS UP X2, CALL LIGHT PLACED WITHIN EASY REACH. WILL ENDORSE TO NEXT SHIFT FOR CONTINUITY OF CARE.
--- NOTE | 2021-08-15 19:40 | NUR ---
RN OPENING NOTES RECEIVED PATIENT IN BED, AWAKE, A/O X3 AND VERBALLY RESPONSIVE. ON ROOM AIR AND PT TOLERATED WELL. BREATHING EVEN AND UNLABORED. IV ACCESS ON RIGHT UPPER ARM MIDLINE #18G, INTACT AND PATENT, RUNNING NS @75ML/HR RUNNING. NO C/O PAIN OR DISCOMFORT. NO ACUTE DISTRESS. ALL SAFETY MEASURE IN PLACE,BED IN LOWEST POSITION AND LOCKED. SIDE RAILS UP X2, PLACE CALL LIGHT WITHIN REACH. WILL CONTINUE TO MONITOR.
[2021-08-15 20:00] VITALS: BP 120/59
[2021-08-15] MEDS: FINASTERIDE (5 MG) 5 MG TABLET PO SCH (21:25)
[2021-08-16] VITALS: BP 120/53
[2021-08-16] MEDS: IV NS 0.9% 1,000 ML IV SCH ×3 (02:43→20:50)
[2021-08-16 04:00] VITALS: BP 125/59
[2021-08-16] MEDS: MORPHINE SULFATE INJ 2 MG/ML DISP.SYRIN IV PRN ×2 (05:37→15:21)
--- NOTE | 2021-08-16 05:44 | NUR ---
RN NOTES: PT C/O ABDOMEN PAIN, 8/10 PAIN SCALE. MORPHINE GIVEN PER PRN ORDERED. PT TOLERATED WELL. WILL CONTINUE TO MONITOR
--- NOTE | 2021-08-16 06:45 | NUR ---
RN CLOSING NOTES PATIENT IN BED, AWAKE, A/O X3 AND VERBALLY RESPONSIVE. ON ROOM AIR AND PT TOLERATED WELL. O2 SAT 94%. BREATHING EVEN AND UNLABORED. IV ACCESS ON RIGHT UPPER ARM MIDLINE #18G, INTACT AND PATENT, RUNNING NS @125ML/HR. NO C/O PAIN OR DISCOMFORT AT THIS MOMENT. NO ACUTE DISTRESS. ALL DUE MEDS GIVEN PER ORDERED. ALL SAFETY MEASURE IN PLACE,BED IN LOWEST POSITION AND LOCKED. SIDE RAILS UP X2, PLACE CALL LIGHT WITHIN REACH. WILL ENDORSE TO MORNING SHIFT NURSE.
[2021-08-16] MEDS: PANTOPRAZOLE 40 MG TABLET.DR PO SCH (07:52)
[2021-08-16 08:00] VITALS: BP 133/48
[2021-08-16 08:07] LABS: IMMUNOGLOBULIN A, SERUM 434 mg/dL (61-437); IMMUNOGLOBULIN G, SERUM 1330 mg/dL (603-1613); IMMUNOGLOBULIN M, SERUM 66 mg/dL (15-143)
[2021-08-16 10:07] LABS: *ANA ANTI-CENTROMERE B AB <0.2 AI (0.0-0.9); *ANA ANTI-DNA(DS) AB, QN 1 IU/mL (0-9); *ANA ANTI-JO-1 <0.2 AI (0.0-0.9); *ANA ANTICHROMATIN ANTIBODY <0.2 AI (0.0-0.9); *ANA RNP ANTIBODIES <0.2 AI (0.0-0.9); *ANA SJOGREN'S ANTI-SS-A <0.2 AI (0.0-0.9); *ANA SJOGREN'S ANTI-SS-B <0.2 AI (0.0-0.9); *ANAANTI-SCLERODERMA-70 AB <0.2 AI (0.0-0.9); *ANASMITH AB <0.2 AI (0.0-0.9)
[2021-08-16] MEDS: MEROPENEM 500 MG in IV NS 0.9% 50 ML IV SCH ×2 (10:19→21:57)
[2021-08-16] MEDS: ASPIRIN 81 MG TAB.CHEW PO SCH (10:20)
[2021-08-16] MEDS: BUDESONIDE 3 MG CAP.SR.24H PO SCH (10:20)
[2021-08-16] MEDS: ESCITALOPRAM OXALATE (10 MG) 10 MG TABLET PO SCH (10:20)
[2021-08-16] MEDS: CARVEDILOL 3.125 MG TABLET PO SCH ×2 (10:20→21:58)
[2021-08-16] MEDS: CLOPIDOGREL BISULFATE 75 MG TABLET PO SCH (10:20)
[2021-08-16] MEDS: TAMSULOSIN 0.4 MG CAP.SR.24H PO SCH (10:20)
[2021-08-16 11:07] LABS: *SPE A/G RATIO 0.5 (0.7-1.7); *SPE ALPHA-1-GLOBULIN 0.5 g/dL (0.0-0.4); *SPE ALPHA-2-GLOBULIN 1.1 g/dL (0.4-1.0); *SPE M-SPIKE Not Observed g/dL (Not Observed)
[2021-08-16 12:00] VITALS: BP 120/52
[2021-08-16 14:13] LABS: BASOPHILS % (AUTO) 0.1 % (0.0-2.0); EOSINOPHILS % (AUTO) 1.9 % (0.0-6.0); HEMATOCRIT 38 % (39-51); HEMOGLOBIN 12.4 g/dL (13.5-17.5); LYMPHOCYTES # (AUTO) 0.6 K/uL (0.8-4.8); LYMPHOCYTES % (AUTO) 2.3 % (20.0-44.0); MEAN CORPUSCULAR HGB CONC 33 g/dl (31.0-36.0); MEAN CORPUSCULAR VOLUME 85 fL (80-96); MONOCYTES # (AUTO) 1.8 K/uL (0.1-1.30); MONOCYTES % (AUTO) 6.7 % (2.0-12.0); NEUTROPHILS # (AUTO) 24.2 K/uL (1.8-8.9); PLATELET COUNT (AUTO) 114 K/uL (150-450); RED BLOOD CELL COUNT(AUTO) 4.52 MIL/uL (4.5-6.0); WHITE BLOOD COUNT (AUTO) 27.2 K/uL (4.3-11.0)
[2021-08-16 14:25] LABS: CALCIUM, SERUM 7.9 mg/dL (8.5-10.1); CARBON DIOXIDE 17 mmol/L (21-32); CHLORIDE 105 mmol/L (98-107); CREATININE 1.8 mg/dL (0.6-1.3); GLUCOSE 128 mg/dL (74-106); POTASSIUM 4.2 mmol/L (3.5-5.1); SODIUM SERUM 135 mmol/L (136-145); UREA NITROGEN, BLOOD 47 mg/dL (7-18)
[2021-08-16 16:00] VITALS: BP 124/34
--- NOTE | 2021-08-16 16:51 | NUR ---
SHIFT SUMMARY VSS, AFEBRILE, PAIN MANAGED WITH MORPHINE X1. A/O 2-3. WITH PERIODS OF CONFUSION. ON ROOM AIR SATURATING >95%. IV ACCESS ON R FA #22 G AND SAVANAH MIDLINE, NS RUNNING AT 125 ML/HR, INTACT AND PATENT. SAFETY MEASURES MAINTAINED. BED IN LOWEST POSITION, BRAKES LOCKED. SIDE RAILS UP X2. CALL LIGHT WITHIN REACH. WILL ENDORSE CONTINUITY OF CARE TO ONCOMING SHIFT.
[2021-08-16 18:07] LABS: BAND % (MANUAL) 6 % (0.0-5.0); EOSINOPHILS % (MANUAL) 2 % (0-4); LYMPHOCYTES % (MANUAL) 4 % (16-48); MONOCYTES % (MANUAL) 5 % (0-11.0); NEUTROPHILS % (MANUAL) 83 (42-76)
--- NOTE | 2021-08-16 19:10 | NUR ---
RN OPENING NOTES RECEIVED PATIENT ON BED, ALERT AND VERBALLY RESPONSIVE, A/O x 3, WITH CONFUSION, ON ROOM AIR SATING AT 94%, RESPIRATORY EVEN AND UNLABORED, NO SOB NOTED, NOT IN ACUTE DISTRESS. REMAIN AFEBRILE. NOTED WITH SAVANAH MID LINE, PATENT, INTACT. FLUSHED WITH NS, NO S/S OF INFILTRATION NOTED AT SITE. RUNNING WITH NS @ 125 ML/HR. PATIENT WITH LEMON CATHETER PATENT, INTACT DRAINING WITH CLEAR YELLOW URINE VIA GRAVITY. ALL SAFETY MEASURE PROVIDED. BED IN LOWEST POSITION, LOCKED. BED ALARM ARMED. CALL LIGHT WITH IN REACH. CONTINUE TO MONITOR.
[2021-08-16 20:00] VITALS: BP 124/63
[2021-08-16] MEDS: FINASTERIDE (5 MG) 5 MG TABLET PO SCH (21:58)
[2021-08-17] VITALS (7 sets, daily range): BP systolic 111–139; BP diastolic 46–57
[2021-08-17] MEDS: IV NS 0.9% 1,000 ML IV SCH ×3 (03:23→20:59)
--- NOTE | 2021-08-17 05:20 | NUR ---
RN NOTED PATIENT REFUSED TO TAKE PICTURE ON HIS LEFT BKA SURGICAL WOUND. Addendum: 08/17/21 at 0634 by MARIJA ACOSTA RN WRONG PATIENT
--- NOTE | 2021-08-17 06:29 | NUR ---
HAWA NOTES PATIENT REFUSED BLOOD DRAW, EXPLAINED RISKS AND BENEFITS, OFFER 3X STILL REFUSED. Addendum: 08/17/21 at 0634 by MARIJA ACOSTA RN WRONG PATIENT
--- NOTE | 2021-08-17 07:30 | NUR ---
RN OPENING NOTES RECEIVED PATIENT AWAKE ON BED. A/O X2, ON ROOM AIR, TOLERATING WELL, NO SOB NOTED,, NOT IN DISTRESS, WITH COMPLAINTS OF TOLERABLE PAIN IN THE ABDOMEN, COMFORT MEASURES PROVIDED. WITH IV ACCESS ON SAVANAH MIDLINE WITH IVF NS AT 125 ML/HR, INFUSING WELL. ALL SAFETY PRECAUTIONS IN PLACE, BED ON LOWEST LOCK POSITION, WITH CALL LIGHT WITHIN REACH. WILL CONTINUE TO MONITOR.
--- NOTE | 2021-08-17 07:40 | NUR ---
RN NOTES PATIENT REMAIN STABLE THROUGH OUT THE SHIFT. RESPIRATORY EVEN AND UNLABORED, NO SOB NOTED, NOT IN ACUTE DISTRESS. REMAIN AFEBRILE. RUNNING WITH NS @ 125 ML/HR. PATIENT WITH LEMON CATHETER PATENT, INTACT DRAINING WITH CLEAR YELLOW URINE VIA GRAVITY. ALL DUE MEDS GIVEN ORDERED. ALL SAFETY MEASURE PROVIDED. BED IN LOWEST POSITION, LOCKED. BED ALARM ARMED. CALL LIGHT WITH IN REACH. REPORT GIVEN TO MORNING SHIFT NURSE.
[2021-08-17] MEDS: ASPIRIN 81 MG TAB.CHEW PO SCH (08:46)
[2021-08-17] MEDS: PANTOPRAZOLE 40 MG TABLET.DR PO SCH (08:47)
[2021-08-17] MEDS: MEROPENEM 500 MG in IV NS 0.9% 50 ML IV SCH ×2 (08:47→21:00)
[2021-08-17] MEDS: BUDESONIDE 3 MG CAP.SR.24H PO SCH (08:48)
[2021-08-17] MEDS: ESCITALOPRAM OXALATE (10 MG) 10 MG TABLET PO SCH (08:49)
[2021-08-17] MEDS: CLOPIDOGREL BISULFATE 75 MG TABLET PO SCH (08:49)
[2021-08-17] MEDS: TAMSULOSIN 0.4 MG CAP.SR.24H PO SCH (08:51)
[2021-08-17] MEDS: CARVEDILOL 3.125 MG TABLET PO SCH ×2 (08:51→21:00)
[2021-08-17] MEDS ORDERED: NITR100C PO (11:13)
[2021-08-17] MEDS ORDERED: CARV3.122 PO (11:13)
[2021-08-17] MEDS ORDERED: CLOP75TA15 PO (11:13)
[2021-08-17] MEDS ORDERED: ASPI-1169 PO (11:13)
[2021-08-17] MEDS: MORPHINE SULFATE INJ 2 MG/ML DISP.SYRIN IV PRN ×3 (11:59→21:00)
--- NOTE | 2021-08-17 18:33 | NUR ---
RN NOTES PATIENT REMAIN STABLE THROUGH OUT THE SHIFT. NO SOB, NOT IN ACUTE DISTRESS. REMAIN AFEBRILE. IVF NS INFUSING WELL @ 125 ML/HR. LEMON CATHETER INTACT, DRAINING CLEAR YELLOW URINE VIA GRAVITY. ALL DUE MEDS GIVEN ORDERED. ALL SAFETY MEASURE PROVIDED. BED IN LOWEST POSITION, LOCKED. BED ALARM ON. CALL LIGHT WITH IN REACH. WILL ENDORSE TO NEXT NURSE ON DUTY FOR CONTINUITY OF CARE.
--- NOTE | 2021-08-17 19:59 | NUR ---
RN OPENING NOTES RECEIVED PT IN BED, AWAKE, FAMILY MEMBERS AT BEDSIDE. AOx3, ABLE TO MAKE NEEDS KNOWN. ON RA AND TOLERATING WELL. NO SOB NOTED. NO S/SX OF RESPIRATORY DISTRESS NOTED. IV ACCESS IN SAVANAH MIDLINE RUNNING NS @ 125 ML/HR. SAFETY PRECAUTIONS IN PLACE: BED IN LOWEST, LOCKED POSITION, SIDERAILS UPx2, AND BRAKES ON. TABLE AND CALL LIGHT WITHIN REACH. WILL CONTINUE TO MONITOR.
[2021-08-17] MEDS: FINASTERIDE (5 MG) 5 MG TABLET PO SCH (21:00)
--- NOTE | 2021-08-17 21:01 | NUR ---
RN NOTES ADMINISTERED MORPHINE FOR PAIN PER MD ORDER. VS WNL. WILL CONTINUE TO MONITOR.
[2021-08-18] MEDS: MORPHINE SULFATE INJ 2 MG/ML DISP.SYRIN IV PRN ×4 (04:15→20:42)
[2021-08-18] MEDS: IV NS 0.9% 1,000 ML IV SCH ×3 (04:16→19:57)
--- NOTE | 2021-08-18 04:16 | NUR ---
RN NOTES ADMINISTERED MORPHINE FOR PAIN PER MD ORDER. VS WNL. WILL CONTINUE TO MONITOR.
--- NOTE | 2021-08-18 06:33 | NUR ---
RN CLOSING NOTES PT IN BED, ASLEEP, AWAKENS TO VERBAL STIMULI. AOx3, ABLE TO MAKE NEEDS KNOWN. ON RA AND TOLERATING WELL. NO SOB NOTED. NO S/SX OF RESPIRATORY DISTRESS NOTED. IV ACCESS IN SAVANAH MIDLINE RUNNING NS @ 125 ML/HR. ALL ORDERS CARRIED OUT. ALL NEEDS MET. PT KEPT CLEAN AND DRY. TREATED PAIN THROUGHOUT SHIFT. SAFETY PRECAUTIONS IN PLACE: BED IN LOWEST, LOCKED POSITION, SIDERAILS UPx2, AND BRAKES ON. TABLE AND CALL LIGHT WITHIN REACH. WILL ENDORSE TO ONCOMING SHIFT FOR YAMILEX.
--- NOTE | 2021-08-18 07:18 | NUR ---
RN OPENING NOTES RECEIVED PATIENT ASLEEP IN BED, EASILY AROUSED, VERBALLY RESPONSIVE. NO SIGNS OF ACUTE DISTRESS NOTED. STABLE ON ROOM AIR. NO S/SX OF PAIN AT THIS TIME. NOTED WITH IV ACCESS ON RIGHT UPPER ARM MIDLINE #18G, INTACT AND PATENT, WITH NS @125ML/HR RUNNING. SAFETY MEASURE IN PLACE, BED IN LOWEST AND LOCKED POSITION, SIDE RAILS UP X2, CALL LIGHT PLACED WITHIN EASY REACH. WILL CONTINUE TO MONITOR PATIENT.
[2021-08-18] MEDS: PANTOPRAZOLE 40 MG TABLET.DR PO SCH (08:22)
[2021-08-18] MEDS: CLOPIDOGREL BISULFATE 75 MG TABLET PO SCH (08:23)
[2021-08-18] MEDS: TAMSULOSIN 0.4 MG CAP.SR.24H PO SCH (08:23)
[2021-08-18] MEDS: CARVEDILOL 3.125 MG TABLET PO SCH ×2 (08:23→20:41)
[2021-08-18] MEDS: MEROPENEM 500 MG in IV NS 0.9% 50 ML IV SCH ×2 (08:23→20:42)
[2021-08-18] MEDS: BUDESONIDE 3 MG CAP.SR.24H PO SCH (08:23)
[2021-08-18] MEDS: ESCITALOPRAM OXALATE (10 MG) 10 MG TABLET PO SCH (08:23)
[2021-08-18] MEDS: ASPIRIN 81 MG TAB.CHEW PO SCH (08:23)
--- NOTE | 2021-08-18 12:15 | NUR ---
RN NOTES SEEN BY DR. BENJAMIN WITH NEW ORDERS CARRIED OUT.
[2021-08-18 13:00] VITALS: BP 131/59
[2021-08-18] MEDS: BENZONATATE 100 MG CAPSULE PO PRN (13:17)
[2021-08-18] MEDS: MEGESTROL ACETATE SUSP 400 MG/10 ML UDC PO SCH (16:16)
[2021-08-18] MEDS: ENSURE ENLIVE 237 ML LIQUID (VANILLA) PO SCH (17:13)
--- NOTE | 2021-08-18 18:43 | NUR ---
RN CLOSING NOTES PATIENT RESTING IN BED, EASILY AROUSED, VERBALLY RESPONSIVE. NO SIGNS OF ACUTE DISTRESS NOTED. STABLE ON ROOM AIR. IV ACCESS ON RIGHT UPPER ARM MIDLINE #18G, INTACT AND PATENT, WITH NS @125ML/HR RUNNING. ALL DUE MEDS GIVEN, TAKEN WELL. MEDICATED FOR PAIN NEEDED. WITH F/C INTACT, DRAINING KANU COLORED URINE. SAFETY MEASURE MAINTAINED, BED IN LOWEST AND LOCKED POSITION, SIDE RAILS UP X2, CALL LIGHT PLACED WITHIN EASY REACH. WILL ENDORSE TO NEXT SHIFT FOR CONTINUITY OF CARE. FAMILY AT BEDSIDE.
--- NOTE | 2021-08-18 19:00 | NUR ---
RN NOTE RECEIVED PATIENT IN BED, AO X 3-4, IN NO ACUTE DISTRESS AT THIS TIME, FAMILY AT BEDSIDE. RESPIRATION UNLABORED, SATURATION AT 97% ON ROOM AIR, HR IS 63. SAVANAH MIDLINE PATENT AND FLUSHING WELL, NO S/S OF INFECTION WITH NS INFUSING AT 125 ML/HR. LEMON CATHETER DRAINING TO A CLEAR, YELLOW OUTPUT. SAFETY MEASURES IMPLEMENTED. PATIENT BED ALARM IS ON. HEAD OF BED ELEVATED. BED IS LOCKED, IN LOWEST POSITION AND SIDE RAILS UP. CALL LIGHT WITHIN REACH OF THE PATIENT. WILL CONTINUE TO MONITOR AND REASSESS FOR ANY CHANGES.
[2021-08-18 20:00] VITALS: BP 127/55
[2021-08-18 21:00] VITALS: BP 127/55
[2021-08-18] MEDS: FINASTERIDE (5 MG) 5 MG TABLET PO SCH (21:04)
[2021-08-19] MEDS: IV NS 0.9% 1,000 ML IV SCH ×2 (03:25→11:12)
[2021-08-19 04:00] VITALS: BP 107/57
[2021-08-19 06:10] LABS: BASOPHILS % (AUTO) 0.1 % (0.0-2.0); EOSINOPHILS % (AUTO) 3.7 % (0.0-6.0); HEMATOCRIT 35 % (39-51); HEMOGLOBIN 11.2 g/dL (13.5-17.5); LYMPHOCYTES # (AUTO) 0.8 K/uL (0.8-4.8); LYMPHOCYTES % (AUTO) 2.6 % (20.0-44.0); MEAN CORPUSCULAR HGB CONC 32 g/dl (31.0-36.0); MEAN CORPUSCULAR VOLUME 86 fL (80-96); MONOCYTES # (AUTO) 2.4 K/uL (0.1-1.30); NEUTROPHILS # (AUTO) 25.5 K/uL (1.8-8.9); NEUTROPHILS % (AUTO) 85.6 % (43.0-81.0); PLATELET COUNT (AUTO) 65 K/uL (150-450); RED BLOOD CELL COUNT(AUTO) 4.06 MIL/uL (4.5-6.0); WHITE BLOOD COUNT (AUTO) 29.8 K/uL (4.3-11.0)
[2021-08-19 06:19] LABS: CALCIUM, SERUM 7.6 mg/dL (8.5-10.1); CARBON DIOXIDE 16 mmol/L (21-32); CHLORIDE 111 mmol/L (98-107); CREATININE 1.5 mg/dL (0.6-1.3); GLUCOSE 105 mg/dL (74-106); POTASSIUM 4.6 mmol/L (3.5-5.1); SODIUM SERUM 138 mmol/L (136-145); UREA NITROGEN, BLOOD 57 mg/dL (7-18)
[2021-08-19] MEDS: MORPHINE SULFATE INJ 2 MG/ML DISP.SYRIN IV PRN ×2 (06:26→15:37)
[2021-08-19 07:21] LABS: EOSINOPHILS % (MANUAL) 5 % (0-4); LYMPHOCYTES % (MANUAL) 3 % (16-48); METAMYELOCYTES % 1 % (0-0); MONOCYTES % (MANUAL) 7 % (0-11.0); NEUTROPHILS % (MANUAL) 84 (42-76)
--- NOTE | 2021-08-19 07:49 | NUR ---
MS RN NOTE RECEIVED PATIENT IN BED, AO X 2-3, IN NO ACUTE DISTRESS AT THIS TIME, . RESPIRATION UNLABORED, ON ROOM AIR, NO SOB NOTED AT THIS TIME . SAVANAH MIDLINE PATENT AND FLUSHING WELL, NO S/S OF INFECTION WITH NS INFUSING AT 125 ML/HR. LEMON CATHETER DRAINING TO A CLEAR, YELLOW OUTPUT. SAFETY MEASURES IMPLEMENTED. PATIENT BED ALARM IS ON. HEAD OF BED ELEVATED. BED IS LOCKED, BED IN LOWEST AND LOCKED POSITION AND SIDE RAILS UP. CALL LIGHT WITHIN REACH OF THE PATIENT. WILL CONTINUE TO MONITOR
[2021-08-19 08:00] VITALS: BP 123/39
[2021-08-19] MEDS: ENSURE ENLIVE 237 ML LIQUID (VANILLA) PO SCH ×3 (08:00→16:37)
[2021-08-19] MEDS: MEROPENEM 500 MG in IV NS 0.9% 50 ML IV SCH ×2 (08:18→21:03)
[2021-08-19] MEDS: MEGESTROL ACETATE SUSP 400 MG/10 ML UDC PO SCH ×2 (08:18→16:32)
[2021-08-19] MEDS: CLOPIDOGREL BISULFATE 75 MG TABLET PO SCH (08:18)
[2021-08-19] MEDS: PANTOPRAZOLE 40 MG TABLET.DR PO SCH (08:18)
[2021-08-19] MEDS: ASPIRIN 81 MG TAB.CHEW PO SCH (08:19)
[2021-08-19] MEDS: ESCITALOPRAM OXALATE (10 MG) 10 MG TABLET PO SCH (08:19)
[2021-08-19] MEDS: TAMSULOSIN 0.4 MG CAP.SR.24H PO SCH (08:19)
[2021-08-19] MEDS: CARVEDILOL 3.125 MG TABLET PO SCH ×2 (08:30→21:03)
[2021-08-19] MEDS: BUDESONIDE 3 MG CAP.SR.24H PO SCH (08:33)
--- NOTE | 2021-08-19 10:20 | NUR ---
ms rn note all needs attended family at bedside dr ernandez updated patient conation, spoke with son aware that wbc 29.8 will f\u
[2021-08-19] MEDS: BENZONATATE 100 MG CAPSULE PO PRN (12:07)
--- NOTE | 2021-08-19 12:21 | NUR ---
MS RN NOTE C\O COUGH,COUGH MEDICATION PO GIVEN ORDERED WILL F\U
[2021-08-19 13:01] VITALS: BP 102/42
--- NOTE | 2021-08-19 13:40 | NUR ---
MS RN NOTE CT G HEAD CHEST X RAY DONE ORDERED WILL MONITOR
--- NOTE | 2021-08-19 13:53 | NUR ---
ms rn note patient become more lethargic and with labored respiration , placed on 2l nc saturation 96% , also called to dr oma burrell order abg , chest x ray , ct head , order carried out Addendum: 08/19/21 at 1556 by MARYJO RENDON RN per dr oma goss to hold ivf at this time
[2021-08-19 13:56] LABS: ABG BASE EXCESS -10.7 mmol/L; ABG OXYGEN SATURATION 96.7 % (92.0-98.5); ABG PCO2 20.9 mmHg (35.0-45.0); ABG PH 7.387 (7.350-7.450); ABG PO2 92.2 mmHg (75.0-100.0); AaDO2 82.8 mmHg; COHb 0.9 % (0.5-1.5); MetHb 0.3 % (0.0-1.5); O2Hb 95.5 % (94.0-97.0); SITE, ABG Right Radial; VENT MODE, BG nasal cannula
--- NOTE | 2021-08-19 15:56 | NUR ---
MS RN NOTE C\O SEVERE PAIN ON BODY, MORPHINE 2MG IVP GIVEN ORDERED, BP 115/62 SATURATION 96%
[2021-08-19 16:00] VITALS: BP 121/53
--- NOTE | 2021-08-19 18:02 | NUR ---
MS RN NOTES CALLED DR RICK NOTIFY RESULTS OF CHEST X RAY AND CT HEAD NO NEW ORDER GIVEN OKAY TO DC FLUIDS HE IS RESTING COMFORTABLE AT THIS, TIME FAMILY AT BED SIDE
--- NOTE | 2021-08-19 18:20 | NUR ---
MS RN NOTES PATIENT IN BED ON 2L NC SAT 96 NOW RESTING COMFORTABLY WITH LEMON CATHETER TO GRAVITY KANU COLOR URINE RIGHT UPPER MID LINE \NO IV FLUIDS PER MD ORDER FAMILY AT BED SIDE ALL NEEDS ATTENDED AND ADDRESSED BED IN LOWEST LOCKED POSITION WILL CONTINUE TO MONITOR
--- NOTE | 2021-08-19 19:20 | NUR ---
RN NOTE RECEIVED PT IN BED. PT IS ON 2L OF O2 VIA NC SHOWING NO S/SX OF RESP DISTRESS. PT IS AOX1. IV ACCESS NOTED ON RIGHT UPPER ARM ML. LINE FLUSHED, PATENT, AND INTACT WITH NO INFILTRATION. ALL SAFETY MEASURES IMPLEMENTED. HOB ELEVATED. CALL LIGHT WITHIN REACH. BED LOCKED AND IN LOWEST POSITION. SIDE RAILS UP. WILL CONTINUE TO MONITOR AND ASSESS FOR ANY CHANGES DURING SHIFT.
[2021-08-19 21:00] VITALS: BP 126/67
[2021-08-19] MEDS: FINASTERIDE (5 MG) 5 MG TABLET PO SCH (21:02)
[2021-08-20] MEDS: MORPHINE SULFATE INJ 2 MG/ML DISP.SYRIN IV PRN ×3 (02:58→21:15)
[2021-08-20 05:00] VITALS: BP 115/59
[2021-08-20 06:21] LABS: BASOPHILS % (AUTO) 0.1 % (0.0-2.0); EOSINOPHILS % (AUTO) 2.5 % (0.0-6.0); HEMATOCRIT 35 % (39-51); HEMOGLOBIN 11.6 g/dL (13.5-17.5); LYMPHOCYTES # (AUTO) 0.9 K/uL (0.8-4.8); LYMPHOCYTES % (AUTO) 3.1 % (20.0-44.0); MEAN CORPUSCULAR HGB CONC 33 g/dl (31.0-36.0); MEAN CORPUSCULAR VOLUME 84 fL (80-96); MONOCYTES # (AUTO) 2.2 K/uL (0.1-1.30); MONOCYTES % (AUTO) 7.6 % (2.0-12.0); NEUTROPHILS # (AUTO) 25.4 K/uL (1.8-8.9); NEUTROPHILS % (AUTO) 86.7 % (43.0-81.0); WHITE BLOOD COUNT (AUTO) 29.3 K/uL (4.3-11.0)
--- NOTE | 2021-08-20 06:56 | NUR ---
RN NOTE NO CHANGES IN PT CONDITION DURING SHIFT. PT IS ON 2L OF O2 VIA NC SHOWING NO S/SX OF RESP DISTRESS. IV ACCESS NOTED ON RIGHT UPPER ARM ML. ALL DUE MEDS GIVEN ORDERED. PT KEPT CLEAN AND COMFORTABLE. ALL SAFETY MEASURES IMPLEMENTED. HOB ELEVATED. CALL LIGHT WITHIN REACH. BED LOCKED AND IN LOWEST POSITION. SIDE RAILS UP. WILL ENDORSE TO MORNING SHIFT RN FOR YAMILEX.
--- NOTE | 2021-08-20 07:30 | NUR ---
PT RECEIVED RESTING COMFORTABLY IN BED. NO S/S OR C/O PAIN OR DISTRESS NOTED. SIDE RAILS UP X2, CALL LIGHT LEFT WITHIN REACH. WILL CONTINUE PLAN OF CARE.
[2021-08-20 07:48] LABS: PLATELET COUNT (AUTO) 48 K/uL (150-450)
[2021-08-20 08:23] LABS: BAND % (MANUAL) 4 % (0.0-5.0); EOSINOPHILS % (MANUAL) 2 % (0-4); LYMPHOCYTES % (MANUAL) 2 % (16-48); METAMYELOCYTES % 1 % (0-0); MONOCYTES % (MANUAL) 4 % (0-11.0); MYELOCYTES % 1 % (0-0); NEUTROPHILS % (MANUAL) 86 (42-76)
[2021-08-20] MEDS: MEROPENEM 500 MG in IV NS 0.9% 50 ML IV SCH ×2 (08:49→22:21)
[2021-08-20] MEDS: ESCITALOPRAM OXALATE (10 MG) 10 MG TABLET PO SCH (08:50)
[2021-08-20] MEDS: MEGESTROL ACETATE SUSP 400 MG/10 ML UDC PO SCH ×2 (08:51→18:28)
[2021-08-20] MEDS: BUDESONIDE 3 MG CAP.SR.24H PO SCH (08:51)
[2021-08-20] MEDS: ASPIRIN 81 MG TAB.CHEW PO SCH (08:51)
[2021-08-20] MEDS: TAMSULOSIN 0.4 MG CAP.SR.24H PO SCH (08:51)
[2021-08-20] MEDS: PANTOPRAZOLE 40 MG TABLET.DR PO SCH (08:52)
[2021-08-20] MEDS: CLOPIDOGREL BISULFATE 75 MG TABLET PO SCH (09:00)
[2021-08-20] MEDS: CARVEDILOL 3.125 MG TABLET PO SCH ×2 (09:00→21:00)
[2021-08-20] MEDS: ENSURE ENLIVE 237 ML LIQUID (VANILLA) PO SCH ×3 (09:09→18:29)
--- NOTE | 2021-08-20 10:28 | NUR ---
TEXT DR. ANDERSON FOR MRI APPROVAL.
[2021-08-20 10:47] LABS: CALCIUM, SERUM 8.1 mg/dL (8.5-10.1); CARBON DIOXIDE 16 mmol/L (21-32); CHLORIDE 111 mmol/L (98-107); CREATININE 1.7 mg/dL (0.6-1.3); GLUCOSE 117 mg/dL (74-106); POTASSIUM 4.7 mmol/L (3.5-5.1); SODIUM SERUM 138 mmol/L (136-145); UREA NITROGEN, BLOOD 67 mg/dL (7-18)
[2021-08-20] MEDS: CITRIC ACID/SODIUM CITRATE (BICITRA)15 ML UDC PO SCH ×4 (11:05→21:00)
[2021-08-20 13:00] VITALS: BP 112/51
--- NOTE | 2021-08-20 19:25 | NUR ---
CHANGE OF SHIFT REPORT PT RESTING COMFORTABLY IN BED. NO S/S OR C/O PAIN OR DISTRESS NOTED. SIDE RAILS UP X2, CALL LIGHT LEFT WITHIN REACH. PT KEPT CLEAN, DRY, AND COMFORTABLE. NO SIGNIFICANT CHANGES SINCE PREVIOUS SHIFT. REPORT GIVEN TO MERRICK SHAIKH.
[2021-08-20 20:00] VITALS: BP 115/61
--- NOTE | 2021-08-20 21:25 | NUR ---
fPt isdm awake and is somnolent. Family is at the bedside. Family has requested information on medication for anagesic. Infomation given to son last dose of analgesic. Family informed of policy for [facility] at their request. Patient's spousen is not available and ios at home. Family will return with copies of document relevant to [facility]. Charge nurse is aware that family will return to address same. acaonsent obtained for transfusion of platelet. As per llab platelet is not ready.
[2021-08-20] MEDS: FINASTERIDE (5 MG) 5 MG TABLET PO SCH (22:00)
[2021-08-21] VITALS (8 sets, daily range): BP systolic 108–130; BP diastolic 58–71
[2021-08-21] MEDS: MORPHINE SULFATE INJ 2 MG/ML DISP.SYRIN IV PRN ×2 (03:37→17:55)
--- NOTE | 2021-08-21 03:47 | NUR ---
BP 116/58 hr 51, o2sat 98. pt showing s/s of pain Morphins Sulfate administered as ordered. PT turned and repositioned. O2 increased 4l/min, NC. Platelet is ready to be picked up per lab. Consent to transfuse on chart.Fredrick Ramos is intact and patent.
--- NOTE | 2021-08-21 07:27 | NUR ---
RN OPENING NOTE RECEIVED PT ASLEEP IN BED, EASILY AROUSE. A/O X1-2, REORIENTED PT NEEDED. ON O2 AT 2L/MIN VIA NASAL CANNULA. TOLERATING WELL. BREATHING EVEN AND UNLABORED. NOT IN ANY SIGN OF RESPIRATORY DISTRESS. IV ACCESS IN SAVANAH MIDLINE, INTACT AND PATENT WITH PLATELETS CURRENTLY INFUSING. SAFETY MEASURES IN PLACE: BED IN LOWEST AND LOCKED POSITION, SIDE RAILS UP X3, BED ALARM ON AND CALL LIGHT WITHIN REACH. WILL CONTINUE TO MONITOR PT.
--- NOTE | 2021-08-21 07:27 | NUR ---
RN OPENING NOTE RECEIVED PT ASLEEP IN BED, EASILY AROUSE. A/O X2, REORIENTED PT NEEDED. ON O2 AT 2L/MIN VIA NASAL CANNULA. TOLERATING WELL. BREATHING EVEN AND UNLABORED. NOT IN ANY SIGN OF RESPIRATORY DISTRESS. PT NOTED WITH BILATERAL SOFT WRIST RESTRAINTS WITH NO SIGNS OF IMPAIRED CIRCULATION OR IMPAIRED SKIN INTEGRITY NOTED. IV ACCESS IN LFA G #22, INTACT AND PATENT. SAFETY MEASURES IN PLACE: BED IN LOWEST AND LOCKED POSITION, SIDE RAILS UP X3, BED ALARM ON AND CALL LIGHT WITHIN REACH. WILL CONTINUE TO MONITOR PT. Addendum: 08/21/21 at 1557 by MALA MALDONADO RN DELETE ENTRY WRONG DOCUMENTATION
[2021-08-21] MEDS: PANTOPRAZOLE 40 MG TABLET.DR PO SCH (08:14)
[2021-08-21 08:15] LABS: CARBON DIOXIDE 14 mmol/L (21-32); CHLORIDE 110 mmol/L (98-107); CREATININE 1.7 mg/dL (0.6-1.3); GLUCOSE 133 mg/dL (74-106); POTASSIUM 5.2 mmol/L (3.5-5.1); SODIUM SERUM 139 mmol/L (136-145); UREA NITROGEN, BLOOD 76 mg/dL (7-18)
[2021-08-21] MEDS: MEGESTROL ACETATE SUSP 400 MG/10 ML UDC PO SCH ×2 (08:16→17:17)
[2021-08-21] MEDS: CITRIC ACID/SODIUM CITRATE (BICITRA)15 ML UDC PO SCH ×3 (08:16→17:17)
[2021-08-21] MEDS: BUDESONIDE 3 MG CAP.SR.24H PO SCH (08:16)
[2021-08-21] MEDS: CLOPIDOGREL BISULFATE 75 MG TABLET PO SCH (08:16)
[2021-08-21] MEDS: ESCITALOPRAM OXALATE (10 MG) 10 MG TABLET PO SCH (08:17)
[2021-08-21] MEDS: TAMSULOSIN 0.4 MG CAP.SR.24H PO SCH (08:17)
[2021-08-21] MEDS: ASPIRIN 81 MG TAB.CHEW PO SCH (08:17)
[2021-08-21] MEDS: CARVEDILOL 3.125 MG TABLET PO SCH (08:18)
[2021-08-21] MEDS: ENSURE ENLIVE 237 ML LIQUID (VANILLA) PO SCH ×3 (08:44→17:23)
[2021-08-21 08:49] LABS: ABG BASE EXCESS -9.3 mmol/L; ABG PCO2 17.5 mmHg (35.0-45.0); ABG PH 7.457 (7.350-7.450); ABG PO2 91.9 mmHg (75.0-100.0); AaDO2 115.8 mmHg; COHb 0.8 % (0.5-1.5); MetHb 0.1 % (0.0-1.5); O2Hb 96.1 % (94.0-97.0); SITE, ABG Right Radial
[2021-08-21] MEDS: MEROPENEM 500 MG in IV NS 0.9% 50 ML IV SCH (09:41)
[2021-08-21 10:10] LABS: BASOPHILS % (AUTO) 0.1 % (0.0-2.0); EOSINOPHILS % (AUTO) 0.7 % (0.0-6.0); HEMATOCRIT 36 % (39-51); HEMOGLOBIN 11.6 g/dL (13.5-17.5); LYMPHOCYTES # (AUTO) 0.8 K/uL (0.8-4.8); LYMPHOCYTES % (AUTO) 2.5 % (20.0-44.0); MEAN CORPUSCULAR HGB CONC 32 g/dl (31.0-36.0); MEAN CORPUSCULAR VOLUME 85 fL (80-96); MONOCYTES # (AUTO) 2.4 K/uL (0.1-1.30); MONOCYTES % (AUTO) 7.3 % (2.0-12.0); NEUTROPHILS # (AUTO) 29.6 K/uL (1.8-8.9); NEUTROPHILS % (AUTO) 89.4 % (43.0-81.0); RED BLOOD CELL COUNT(AUTO) 4.25 MIL/uL (4.5-6.0)
[2021-08-21 10:19] LABS: PLATELET COUNT (AUTO) 47 K/uL (150-450); WHITE BLOOD COUNT (AUTO) 33.1 K/uL (4.3-11.0)
--- NOTE | 2021-08-21 10:30 | NUR ---
RN NOTE PLATELET TRANSFUSION ENDED AND COMPLETED AT 1025. NO S/S OF ALLERGIC REACTIONS NOTED. V/S TAKEN BP 120/67, P 70, R 18, TEMP 97.6, SPO2 94%.
[2021-08-21 12:54] LABS: BAND % (MANUAL) 6 % (0.0-5.0); LYMPHOCYTES % (MANUAL) 5 % (16-48); METAMYELOCYTES % 1 % (0-0); MONOCYTES % (MANUAL) 5 % (0-11.0); NEUTROPHILS % (MANUAL) 83 (42-76)
--- NOTE | 2021-08-21 18:33 | NUR ---
RN CLOSING NOTE PT ASLEEP IN BED, EASILY AROUSE. A/O X1-2, ABLE TO MAKE NEEDS KNOWN WITH A YES OR NO QUESTIONS. FAMILY AT BEDSIDE. ON O2 AT 2L/MIN VIA NASAL CANNULA. TOLERATING WELL, WITH SPO2 AT 94%. BREATHING EVEN AND UNLABORED. NOT IN ANY SIGN OF RESPIRATORY DISTRESS. IV ACCESS IN SAVA[place] MIDLINE, INTACT AND PATENT. ALL NEEDS ATTENDED. TURNED AND REPOSITIONED Q2HRS AND NEEDED. PT WILL BE DISCHARGED TO HOME WITH HOSPICE AND WILL BE PICKED UP AT 1999. ALL BELONGINGS ACCOUNTED FOR. DISCHARGED INSTRUCTIONS AND HEALTH TEACHINGS PROVIDED TO PT AND FAMILY WITH FAMILY VERBALIZED UNDERSTANDING. WILL ENDORSE TO SANDING MACHINE TENDER NURSE OF DISCHARGE. SAFETY MEASURES IN PLACE: BED IN LOWEST AND LOCKED POSITION, SIDE RAILS UP X3, BED ALARM ON AND CALL LIGHT WITHIN REACH. WILL ENDORSE TO SANDING MACHINE TENDER NURSE FOR YAMILEX.
--- NOTE | 2021-08-21 19:51 | NUR ---
RN NOTE PT PICKED UP BY [facility]. FAMILY AT BEDSIDE. PT AROUSABLE TO STIMILU. NO S/SX OF RESP DISTRESS NOTED. VS WNL. SAVANAH ML REMOVED, CATHETER INTACT. ALL BELONGINGS AND DISCHARGE PACKET WERE SENT HOME WITH PT. BP 114/63 HR 65. RR 20. O2SAT 98%.
== END 2021-08-21 20:15 | disposition hospice, home (50) | DRG 246 ==
LOC: ER 20:54 → TRANSITION 08-09 00:43 → TELE 08-09 07:38 → ICU 08-10 11:07 → TELE1 08-11 03:31 → TELE-TD 08-11 03:54 → TELE1 08-11 10:04 → MEDSG1 08-16 20:48
PROVIDERS: ADMIT Nurse Practitioner Family
PROC: 027135Z Dilation of Coronary Artery, Two Arteries with Two Drug-eluting Intraluminal Devices, Percutaneous Approach (ICD-10-PCS; principal; 2021-08-10)
PROC: 4A023N7 Measurement of Cardiac Sampling and Pressure, Left Heart, Percutaneous Approach (ICD-10-PCS; 2021-08-10)
PROC: B211YZZ Fluoroscopy of Multiple Coronary Arteries using Other Contrast (ICD-10-PCS; 2021-08-10)
PROC: 4A033BC Measurement of Arterial Pressure, Coronary, Percutaneous Approach (ICD-10-PCS; 2021-08-10)
PROC: 30233R1 Transfusion of Nonautologous Platelets into Peripheral Vein, Percutaneous Approach (ICD-10-PCS; 2021-08-21)
DX: I21.4 Non-ST elevation (NSTEMI) myocardial infarction (principal); N17.0 Acute kidney failure with tubular necrosis; E44.0 Moderate protein-calorie malnutrition; N39.0 Urinary tract infection, site not specified; E87.2 Acidosis; G93.40 Encephalopathy, unspecified; C78.7 Secondary malignant neoplasm of liver and intrahepatic bile duct; C79.31 Secondary malignant neoplasm of brain; C25.2 Malignant neoplasm of tail of pancreas; C78.89 Secondary malignant neoplasm of other digestive organs; J90 Pleural effusion, not elsewhere classified; I31.3 Pericardial effusion (noninflammatory); B96.20 Unspecified Escherichia coli [E. coli] as the cause of diseases classified elsewhere; D69.6 Thrombocytopenia, unspecified; D50.9 Iron deficiency anemia, unspecified; E88.09 Other disorders of plasma-protein metabolism, not elsewhere classified; I25.10 Atherosclerotic heart disease of native coronary artery without angina pectoris; Z20.822 Contact with and (suspected) exposure to COVID-19; Z66 Do not resuscitate; R74.01 Elevation of levels of liver transaminase levels; I95.9 Hypotension, unspecified; Z68.32 Body mass index [BMI] 32.0-32.9, adult; K52.9 Noninfective gastroenteritis and colitis, unspecified; I10 Essential (primary) hypertension; E11.65 Type 2 diabetes mellitus with hyperglycemia
CPT/HCPCS: 36415; 36600; 70450-TC; 71045-TC; 71250-TC; 74178; 76700-TC; 80048-TC; 80053-TC; 80061-TC; 80076-TC; 82105; 82378; 82607-TC; 82728-TC; 82784; 82803-TC; 82962-TC; 83540-TC; 83615-TC; 83735-TC; 84100-TC; 84155; 84165; 84443-TC; 84484-TC; 85025-TC; 85385-TC; 85610-TC; 85730-TC; 86140-TC; 86225; 86235; 86301; 86316; 86334; 86431-TC; 86706; 86803; 86850-TC; 87081-TC; 87086-TC; 87186-TC; 87340; 93307-TC; 94799-TC; 97116-TC; 97530-TC; C1725; C1769; C1887; C9601; C9803; G0378; G0500; J0692; J0696; J1644; J1650; J2185; J2250; J2270; J2405; J2543; J3010; J3490; J7030; J7050; J7060; P9034; Q9967